=== PATIENT | female | born 1950 | race Caucasian/White ===

== ENCOUNTER → 2017-07-15 | Outpatient (CLI) | END | disposition home or self-care (01) ==

== ENCOUNTER → 2017-07-29 | Outpatient (CLI) | payer MEDICARE, OTHER ==
[~2017-07-29] MED LIST: ACET120S PR; HYDACE5 PO; HYDCHL50 PO; IBUP400 PO; PRAV20 PO; TRAM50 PO; TRIHYD5075; Zestril30 MG PO; [UNRECOGNIZED DRUG - REMARK]; [UNRECOGNIZED DRUG - REMARK]
== END | disposition home or self-care (01) ==
LOC: LAB SHORT 18:35 → LAB EV 18:35
DX: N39.0 Urinary tract infection, site not specified (principal)
CPT/HCPCS: 87086

== ENCOUNTER 2018-08-12 22:22 | Emergency (ER) | payer MEDICARE, OTHER ==
[~2018-08-12] VITALS: Ht 167.6 cm; Wt 103.9 kg
[2018-08-12] MEDS ORDERED: KETO10 PO (22:55)
== END 2018-08-12 23:06 | disposition home or self-care (01) ==
LOC: ER 22:22
DX: S00.81XA Abrasion of other part of head, initial encounter (principal); M25.562 Pain in left knee; M25.522 Pain in left elbow; W18.30XA Fall on same level, unspecified, initial encounter; Z79.899 Other long term (current) drug therapy; I10 Essential (primary) hypertension
CPT/HCPCS: 99283

== ENCOUNTER 2021-04-05 10:29 | Inpatient (IN) | payer MEDICARE, OTHER ==
[~2021-04-05] VITALS: Ht 167.6 cm; Wt 166.0 kg
[~2021-04-05 10:29] MED LIST changes: +KETO10 PO
[2021-04-05 10:59] LABS: BASOPHILS ABSOLUTE AUTO 0.03 K/mm3 (0.00-0.23); BASOPHILS PERCENT AUTO 0 % (0-2); EOSINOPHILS ABSOLUTE AUTO 0.08 K/mm3 (0.00-0.68); EOSINOPHILS PERCENT AUTO 1 % (0-6); Hematocrit 47.9 % (33.0-51.0); Hemoglobin 13.3 g/dL (11.5-16.0); IMMATURE GRAN ABSOLUTE AUTO 0.05 K/mm3 (0.00-0.10); IMMATURE GRAN PERCENT AUTO 1 % (0-1); LYMPHOCYTES PERCENT AUTO 14 % (21-46); MONOCYTES ABSOLUTE AUTO 0.75 K/mm3 (0.16-1.47); MONOCYTES PERCENT AUTO 10 % (4-13); Mean Corpuscular HGB 26.4 pg (26.0-34.0); Mean Corpuscular HGB Conc 27.8 g/dL (31.5-36.5); Mean Corpuscular Volume 95 fL (80-100); Mean Platelet Volume 9.2 fL (9.1-12.4); NEUTROPHILS ABSOLUTE AUTO 5.39 K/mm3 (1.96-9.15); NEUTROPHILS PERCENT AUTO 74 % (41-73); Platelet Count 201 K/mm3 (150-400); RDW Coefficient Variation 16.8 % (11.7-14.2); RDW Standard Deviation 58.8 fL (35.1-46.3); Red Blood Cell Count 5.04 M/mm3 (3.80-5.20)
[2021-04-05 11:17] LABS: Albumin, Blood 2.5 g/dL (3.4-5.0); Albumin/Globulin Ratio 0.4 (0.8-1.8); Bun/Creatinine Ratio 16.5 (12.0-20.0); Calcium, Blood 9.1 mg/dL (8.5-10.1); Creatinine, Blood 1.88 mg/dL (0.40-1.00); Globulin, Blood 6.2 g/dL (2.2-4.0); Potassium, Blood 5.8 mmol/L (3.5-5.5); Total Protein, Blood 8.7 g/dL (6.4-8.2)
[2021-04-05 11:23] LABS: PO2 Arterial 108 mmHg (80-100)
[2021-04-05 11:24] LABS: PCO2 Arterial > 105 mmHg (35-45); pH Blood Arterial 7.16 (7.35-7.45)
[2021-04-05 12:08] LABS: Influenza A, PCR NEGATIVE (NEGATIVE); Influenza B, PCR NEGATIVE (NEGATIVE); Resp Syncytial Virus, PCR NEGATIVE (NEGATIVE); SARS-Cov-2 (COVID-19) PCR, MMC NEGATIVE (NEGATIVE)
[2021-04-05] MEDS ORDERED: TIZANIDINE HCL PO (13:42)
[2021-04-05 17:50] LABS: Bun/Creatinine Ratio 15.5 (12.0-20.0); Calcium, Blood 8.6 mg/dL (8.5-10.1); Potassium, Blood 5.7 mmol/L (3.5-5.5)
--- NOTE | 2021-04-05 18:16 | NUR ---
SHIFT SUMMARY PT HAS BEEN RESTING IN BED SINCE ARRIVAL FROM ED. PT HAS BEEN COOPERATIVE AND CALLS APPROPRIATELY FOR ASSISTANCE. PT IS ALERT AND ORIENTED X4. PEDAL AND TIBIAL PULSES ARE VERY FAINT AND DIFFICULT TO LOCATE WITH PALPATION AND DOPPLER. PT ARRIVED WITH MULTIPLE WOUNDS TO THE ABDOMEN AND THE FEET WHICH HAVE BEEN DOCUMENTED, CLEANED, AND DRESSED. PT C/O PAIN AND DISCOMFORT DURING WOUND CARE. A SAWANT CATHETER WAS PLACED UPON ADMISSION TO THE UNIT, PT TOLERATED FAIR, C/O BURNING SENSATION AFTER PLACEMENT. SBP RANGED 101-127. SPO2 HAS REMAINED >90% ON BIPAP 18/8 40%.
--- NOTE | 2021-04-05 20:02 | NUR ---
FULL CODE STATUS CODE STATUS WAS CHANGED BY DAY SHIFT RN TO DNR AT CHANGE OF SHIFT. WHEN VERIFYING CODE STATUS AND PLACING DNR BAND, PATIENT STATED SHE WANTED TO BE A FULL CODE AND TO "KEEP ME ALIVE LONG ENOUGH FOR MY FAMILY TO GET HERE BUT NO LONGER THAN ONE WEEK". PATIENT STATED HER AND DAUGHTER LIVE LOCALLY AND A SON IN [place] BUT THE MAJORITY OF FAMILY LIVES OUT OF STATE. PATIENT EDUCATED ON WHAT A FULL CODE STATUS ENTAILS. PATIENT CONFIRMED SHE WANTS TO BE A FULL CODE. CALL PLACED TO HOSPITALIST, UPDATED ORDER RECIEVED.
[2021-04-06 03:27] LABS: Base Excess Venous 12.4 mmol/L; Bicarbonate Venous 32.3 mmol/L (24.0-30.0); PCO2 Venous 91.9 mmHg (38-42); PO2 Venous 47.8 mmHg (38-42); pH Blood Venous 7.24 (7.34-7.37)
[2021-04-06 03:36] LABS: Hematocrit 44.5 % (33.0-51.0); Hemoglobin 12.4 g/dL (11.5-16.0); Mean Corpuscular HGB 26.7 pg (26.0-34.0); Mean Corpuscular HGB Conc 27.9 g/dL (31.5-36.5); Mean Corpuscular Volume 96 fL (80-100); Platelet Count 157 K/mm3 (150-400); RDW Coefficient Variation 16.7 % (11.7-14.2); Red Blood Cell Count 4.64 M/mm3 (3.80-5.20); White Blood Cell Count 7.38 K/mm3 (4.00-11.30)
[2021-04-06 03:56] LABS: Albumin, Blood 2.2 g/dL (3.4-5.0); Albumin/Globulin Ratio 0.4 (0.8-1.8); Bilirubin, Total 0.6 mg/dL (0.1-1.0); Bun/Creatinine Ratio 18.4 (12.0-20.0); Calcium, Blood 9.1 mg/dL (8.5-10.1); Creatinine, Blood 2.07 mg/dL (0.40-1.00); Globulin, Blood 5.9 g/dL (2.2-4.0); Magnesium, Blood 2.4 mg/dL (1.6-2.4); Potassium, Blood 5.8 mmol/L (3.5-5.5); Total Protein, Blood 8.1 g/dL (6.4-8.2)
[2021-04-06 03:58] LABS: Source, Urine Foley catheter
[2021-04-06 04:08] LABS: Blood, Urine 5+ (Neg); Glucose Qualitative, Urine Neg (Neg); Ketones, Urine 1+ (Neg); Leukocyte Esterase, Urine 2+ (Neg); Nitrite, Urine Neg (Neg); Protein, Urine 3+ (Neg); Specific Gravity, Urine 1.025 (1.003-1.022); Urobilinogen, Urine 2+ (Normal)
[2021-04-06 04:15] LABS: Appearance, Urine Cloudy (Clear); Bilirubin, Urine 1+ (Neg); Color, Urine Amber (P-Yellow)
[2021-04-06 04:17] LABS: Amorphous Heavy (0-Heavy); Bacteria Mod /hpf; Squamous Epithelial Cells Rare /hpf (Few); Transitional Epithelial Cells Few /hpf (0-Rare)
--- NOTE | 2021-04-06 05:53 | NUR ---
SHIFT SUMMARY PATIENT ALERT AND ORIENTED x4. HAS RESTED FOR MAJORITY OF SHIFT. VSS. PATIENT ON BIPAP FOR MOST OF NIGHT. SETTINGS 18/8 40% FIO2 WITH O2 SATS ABOVE 90%. PEDAL PULSES HEARD BY DOPPLER ONLY. DENIES CHEST PAIN. PATIENT WAS ABLE TO TAKE A BREAK FROM BIPAP AT START OF SHIFT TO EAT DINNER AND SPEAK WITH FAMILY MEMBERS. PATIENT REPOSITIONED Q2 AND PRN. SAWANT IN PLACE WITH MINIMAL DARK STEW URINE OUTPUT. VBG DRAWN THIS MORNING, PLAN TO KEEP PATIENT ON BIPAP UNTIL DAY SHIFT CAN REEVALUATE. BED IN LOW POSITION, CALL LIGHT IN REACH. WILL REPORT TO DAY SHIFT.
--- NOTE | 2021-04-06 06:14 | NUR ---
UPDATE PATIENT WAS FOUND TO BE DRINKING WATER THROUGH A STRAW WITH BIPAP IN PLACE. PATIENT EDUCATED ON IMPORTANCE OF STRICT NPO WHILE BIPAP IS ON AND THE RISK OF ASPIRATION. LIQUIDS REMOVED FROM BEDSIDE.
--- NOTE | 2021-04-06 07:31 | NUR ---
ASSUMPTION OF CARE REPORT RECEIVED FROM [facility] RN. PT IS AWAKE AND RESTING IN BED, BIPAP IS IN PLACE 18/8 45%, SPO2 97%. PT DENIES C/O PAIN OR DISCOMFORT.
[2021-04-06 12:01] LABS: Base Excess Venous 12.3 mmol/L; Bicarbonate Venous 32.6 mmol/L (24.0-30.0); PCO2 Venous 71.6 mmHg (38-42); PO2 Venous 28.5 mmHg (38-42); pH Blood Venous 7.34 (7.34-7.37)
[2021-04-07 04:09] LABS: BASOPHILS ABSOLUTE AUTO 0.01 K/mm3 (0.00-0.23); BASOPHILS PERCENT AUTO 0 % (0-2); EOSINOPHILS PERCENT AUTO 0 % (0-6); Hematocrit 41.4 % (33.0-51.0); Hemoglobin 11.7 g/dL (11.5-16.0); IMMATURE GRAN ABSOLUTE AUTO 0.06 K/mm3 (0.00-0.10); IMMATURE GRAN PERCENT AUTO 1 % (0-1); LYMPHOCYTES ABSOLUTE AUTO 0.22 K/mm3 (0.84-5.20); LYMPHOCYTES PERCENT AUTO 2 % (21-46); MONOCYTES ABSOLUTE AUTO 0.28 K/mm3 (0.16-1.47); MONOCYTES PERCENT AUTO 3 % (4-13); Mean Corpuscular HGB 26.3 pg (26.0-34.0); Mean Corpuscular HGB Conc 28.3 g/dL (31.5-36.5); Mean Corpuscular Volume 93 fL (80-100); Mean Platelet Volume 9.1 fL (9.1-12.4); NEUTROPHILS ABSOLUTE AUTO 9.87 K/mm3 (1.96-9.15); NEUTROPHILS PERCENT AUTO 95 % (41-73); Platelet Count 160 K/mm3 (150-400); RDW Coefficient Variation 16.5 % (11.7-14.2); Red Blood Cell Count 4.45 M/mm3 (3.80-5.20); White Blood Cell Count 10.44 K/mm3 (4.00-11.30)
[2021-04-07 04:25] LABS: Bun/Creatinine Ratio 29.9 (12.0-20.0); Calcium, Blood 8.5 mg/dL (8.5-10.1); Creatinine, Blood 1.77 mg/dL (0.40-1.00); Potassium, Blood 5.4 mmol/L (3.5-5.5)
--- NOTE | 2021-04-07 07:14 | NUR ---
SHIFT SUMMARY PT ALERT AND ORIENTED X4. HR 50-90 NSR. ON BIPAP 18/8 30% FIO2 WHILE ASLEEP, MAINTAINING SATS OVER 95%. ON 2L NC WHILE AWAKE AND FOR MEALS. BP STABLE. WOUNDS ON TRUNK COVERED WITH EXUDRY. WOUNDS ON FEET OPEN TO AIR, LEGS ELEVATED. BLE EDEMA. MENTATION IMPROVING, NO HALLUCINATIONS THIS EVENING. Q2 TURNS WITH GIULIA BED. ANXIOUS AT TIMES. SAWANT IN PLACE DRAINING DARK STEW URINE TO GRAVITY. IN BED RESTING WITH CALL ALARM AT SIDE. WILL CONTINUE TO MONITOR UNTIL REPORT GIVEN TO DAYSHIFT RN
[2021-04-07 10:58] LABS: PCO2 Arterial 87.8 mmHg (35-45); PO2 Arterial 56.5 mmHg (80-100); pH Blood Arterial 7.24 (7.35-7.45)
--- NOTE | 2021-04-07 12:23 | NUR ---
AM NOTE: PATIENT ALERT AND ORIENTED X3-4. CLAIMS SHE HAS SOME HALLUCINATIONS OF HER DOGS AND HUSBANDS TOOLS. PERRLA. DENIES NUMBNESS/TINGLING AT THIS TIME. VERY WEAK, Q2 TURNING AND NEEDED. ON BIPAP AT 18/8 AND 30%. WHEN OFF BIPAP FOR MEALS PATIENT ON 2-4L NASAL CANNULA. SATING MID 90'S. LUNGS SOUNDING CLEAR AND DIMINISHED. TELE SHOWING SINUS RHYTHM WITH HR 70-80'S. DENIES CHEST PAIN/PRESSURE. VITAL SIGNS STABLE. MILD EDEMA IN LOWER EXTREMITIES, HARD TO ASSESS DUE TO OBESITY. DENIES ABDOMINAL PAIN/NAUSEA. SPEECH THERAPY IN. TOLERATING PO DIET. MULTIPLE WOUNDS AND IRRITATED FOLDS. MICONAZORB ORDERED, FOLDS CLEAN AND APPLIED. GRANDDAUGHTER AT BEDSIDE. DR. WEEMS AND DR. MICHAUD CONSULTED. CALL LIGHT IN REACH. WILL CONTINUE TO MONITOR.
--- NOTE | 2021-04-07 13:22 | NUR ---
UPDATE: CALL PLACED TO DR. MICHAUD TO UPDATE ON POTASSIUM. NO NEW ORDERS AT THIS TIME.
--- NOTE | 2021-04-07 14:56 | NUR ---
Attempted to interview patient today. Dr. Hyde was assessing patient. Swallow study was being performed. Nurse with in with patient performing care. And patient was asleep/resting. Will attempt later today or tomorrow.
--- NOTE | 2021-04-07 17:00 | NUR ---
Echocardiogram performed by myself and Dilan Jean.
--- NOTE | 2021-04-07 17:59 | NUR ---
SHIFT SUMMARY: PATIENT IS VERY LETHARGIC, WAKES TO NAME, VOICES, AND TOUCH. ABLE TO STATE NAME AND DATE OF . NOT STAYING AWAKE TO EAT DINNER. DR. OSBORNE UPDATED ON MENTATION, PLAN FOR REPEAT ABG IN AM. CONSULTED WITH RESPIRATORY. DR. WEEMS AND DR. MICHAUD CONSULTED. REMAINS ON BIPAP FOR MOST OF DAY, BREAKS FOR LUNCH, DINNER AND WORKING WITH PT. BIPAP SETTINGS 18/8 AND 40% AT THIS TIME. SATING MID-HIGH 90'S. NO CHANGES IN TELE. Q2 TURNING AND NEEDED. SAWANT CATH REMAINS IN PLACE DRAINING CLEAR/YELLOW URINE. MINIMAL PO FLUID INTAKE, FLUID RESTRICTION MAINTAINED. CALL LIGHT IN REACH. SLEEPING AT THIS TIME. WILL CONTINUE TO MONITOR AND REPORT OFF.
--- NOTE | 2021-04-07 20:00 | NUR ---
ASSUMED CARE OF PT, REPORT RECEIVED FROM DAYSHIFT RN. PT HAS BEEN AOX3/4, SHE THINKS IT IS WEDNESDAY AND STATES THAT SHE FEELS LIKE SHE LOST A DAY. SHE IS TALKING TO HER FAMILY ON THE PHONE AT THIS TIME. PT TOLERATES BRIEF BREAKS FROM CPAP, ON 4L NC. SHE DID NOT EAT ANY DINNER AND DECLINES FOOD AT THIS TIME. SEE SHIFT ASSESSMENT FOR EXAM.CALL LIGHT IS IN REACH AND VSS.
[2021-04-08 04:02] LABS: BASOPHILS PERCENT AUTO 0 % (0-2); EOSINOPHILS PERCENT AUTO 0 % (0-6); Hematocrit 38.2 % (33.0-51.0); Hemoglobin 10.8 g/dL (11.5-16.0); IMMATURE GRAN PERCENT AUTO 1 % (0-1); LYMPHOCYTES ABSOLUTE AUTO 0.21 K/mm3 (0.84-5.20); LYMPHOCYTES PERCENT AUTO 2 % (21-46); MONOCYTES ABSOLUTE AUTO 0.26 K/mm3 (0.16-1.47); MONOCYTES PERCENT AUTO 3 % (4-13); Mean Corpuscular HGB 26.4 pg (26.0-34.0); Mean Corpuscular HGB Conc 28.3 g/dL (31.5-36.5); Mean Corpuscular Volume 93 fL (80-100); Mean Platelet Volume 9.1 fL (9.1-12.4); NEUTROPHILS ABSOLUTE AUTO 9.26 K/mm3 (1.96-9.15); NEUTROPHILS PERCENT AUTO 94 % (41-73); Platelet Count 131 K/mm3 (150-400); RDW Coefficient Variation 16.6 % (11.7-14.2); RDW Standard Deviation 56.5 fL (35.1-46.3); Red Blood Cell Count 4.09 M/mm3 (3.80-5.20); White Blood Cell Count 9.83 K/mm3 (4.00-11.30)
[2021-04-08 04:25] LABS: Albumin, Blood 2.2 g/dL (3.4-5.0); Albumin/Globulin Ratio 0.4 (0.8-1.8); Bilirubin, Total 0.4 mg/dL (0.1-1.0); Bun/Creatinine Ratio 44.6 (12.0-20.0); Calcium, Blood 8.3 mg/dL (8.5-10.1); Creatinine, Blood 1.39 mg/dL (0.40-1.00); Globulin, Blood 5.3 g/dL (2.2-4.0); Magnesium, Blood 2.4 mg/dL (1.6-2.4); Phosphorus, Blood 5.5 mg/dL (2.5-4.9); Potassium, Blood 5.1 mmol/L (3.5-5.5); Total Protein, Blood 7.5 g/dL (6.4-8.2)
--- NOTE | 2021-04-08 04:46 | NUR ---
PT WISHES TO BE A FULL CODE. SHE STATES THAT SHE WANTS US TO KEEP HER ALIVE LONG ENOUGH FOR HER FAMILY TO COME SEE HER IF HER HEART SHOULD STOP, BUT SHE IS NOT DYING NOW.
--- NOTE | 2021-04-08 05:58 | NUR ---
DR MICHAUD IS UPDATED WITH [employer]. NO NEW ORDERS RECEIVED.
[2021-04-08 06:05] LABS: pH Blood Arterial 7.32 (7.35-7.45)
[2021-04-08 06:07] LABS: PCO2 Arterial 76.5 mmHg (35-45)
--- NOTE | 2021-04-08 06:19 | NUR ---
DR MICHAUD AT BEDSIDE. REVIEWED I/O, NO NEW ORDERS.
--- NOTE | 2021-04-08 06:20 | NUR ---
PT REMAINS AOX3/4 OVERNIGHT. SHE CONTINUES TO SAY THAT IT'S WEDNESDAY, BUT OTHERWISE ORIENTED. BIPAP OVERNIGHT WITH BRIEF BREAKS FOR ORAL CARE/SNACK/MEDICATION. PT BECOMES DYSNEIC AND DESATURATES TO THE 70'S DURING A TURN FOR SKIN CARE. SHE QUICKLY RECOVERED WHEN REPOSITIONED TO SITTING POSITION. NO OTHER SIGNIFICANT CHANGES NOTED OVERNIGHT. WILL CONTINUE TO MONITOR AND REPORT TO ONCOMING SHIFT.
--- NOTE | 2021-04-08 13:17 | NUR ---
Patient is lying in bed and alert. Patient seems a little confused although I am not sure what her base line is. She did admit to having hallucinations and she shares those with me but then she seemed to also be having current hallucinations seeing dogs in the room walking around during my visit. She does have moments of clarity to talk about her family members, her health issues and her mix of beliefs and Jew. I reinforce helpful attitudes and practices and provide therapeutic listening, spiritual guidance and prayer. Patient responds well and shows signs of being encouraged in her beliefs and having a renewed hope.
--- NOTE | 2021-04-08 13:50 | NUR ---
Initial Interview with [facility] [employer] 1. Who did you speak with? Spoke with patient. 2. What is the patient's prior level of functions? Patient lives independently with spouse. Patient's daughter and granddaughter live on the [place] property. Granddaughter/daughter and assists with ADL's Patient is afraid she may be fall risk while showering, so granddaughter assists when needed. Patient has a chairlift/reclining chair, and reclining bed. She also has a scooter and wheelchair. She uses a CPAP at night, but states she will switch to a BIPAP upon leaving the hospital. 3. Does patient still drive? No, patient states she will drive only in an emergency. She does not drive routinely. 4. POA/PCP/NOK: Spouse [phone]/PCP Dr. Jessica Ling MD 5. Discharge goals: Date TBD -Fdc Facility/home health: No preference -DME: TBD -Medication Management: self manages -Preferred Pharmacy: [facility] -Housekeeping/Cooking: /patient performs housekeeping and cooking 6. List barriers to discharge: None known at this time 7. Discharge Plan: TBD 8. PCP Follow up appointment: Will be scheduled within seven calendar days of discharge 9. Other Notes: patient is not a . Explained importance of hospital follow-up with PCP within 7 days of discharge. Number confirmed: [phone]. Patient is not a .
--- NOTE | 2021-04-08 16:15 | NUR ---
Skin assessment: Pt has many wound. Bilateral feet have dried flaking wounds, some look like healing blisters. Left food there is a dark area on end of toe. BLE reddened and tight with edema. Panus and fold areas are reddened and some have open areas that were bleeding when cleaned. Nystatin powder was applied to reddened areas. Abdomen was taught from edema as well. Buttocks and coccyx area has purplish coloring to the skin, mepalex applied and pt has been turned every 2 hours if not more frequently and she is on a wound care bed with the air shifting weight as well.
--- NOTE | 2021-04-08 18:15 | NUR ---
Pt just returned from CTA, sitting up in bed eating dinner on 4L oxygen sating low 90s.
--- NOTE | 2021-04-08 18:28 | NUR ---
Notifed Dr. Aguilar of elevated d-dimer and results of CTA.
--- NOTE | 2021-04-08 18:31 | NUR ---
Shift Note: A&O, pleasant with cares. VSS on BIPAP 02/10 and was titrated to 30% fio2 today, sating mid 90s when on BIPAP. Pt is placed on 4L nasal canula when eating meals and tolerates for minimal amount of time on 4L. Pt desats with activity. CBGs 130-188, sliding scale per orders. Voss in place and draining well. IV lasix and solumedrol given per orders as well as IV antifungal. Skin has extensive issues, please see other note of skin assessment. MD ordered a D-dimer in evening that was elevated and then ordered a VQ scan. Scan did not indicate a PE, but pleaural effusions and see report for other findings. Pt is getting lovenox for anticoag. RT administers breathing txs. and brother visited several times today. Pt worked with PT/OT and OPHTHALMOLOGIST today as well. Using lift for repositioning. Pt also has a weight distributing bed to aid in skin health and Q2 turns if not more frequently.
[2021-04-09 03:36] LABS: BASOPHILS PERCENT AUTO 0 % (0-2); EOSINOPHILS PERCENT AUTO 0 % (0-6); Hematocrit 38.3 % (33.0-51.0); Hemoglobin 10.8 g/dL (11.5-16.0); IMMATURE GRAN ABSOLUTE AUTO 0.06 K/mm3 (0.00-0.10); IMMATURE GRAN PERCENT AUTO 1 % (0-1); LYMPHOCYTES ABSOLUTE AUTO 0.19 K/mm3 (0.84-5.20); LYMPHOCYTES PERCENT AUTO 3 % (21-46); MONOCYTES ABSOLUTE AUTO 0.22 K/mm3 (0.16-1.47); MONOCYTES PERCENT AUTO 3 % (4-13); Mean Corpuscular HGB 25.9 pg (26.0-34.0); Mean Corpuscular HGB Conc 28.2 g/dL (31.5-36.5); Mean Corpuscular Volume 92 fL (80-100); Mean Platelet Volume 8.5 fL (9.1-12.4); NEUTROPHILS ABSOLUTE AUTO 6.03 K/mm3 (1.96-9.15); NEUTROPHILS PERCENT AUTO 93 % (41-73); Platelet Count 112 K/mm3 (150-400); RDW Coefficient Variation 16.5 % (11.7-14.2); RDW Standard Deviation 55.1 fL (35.1-46.3); Red Blood Cell Count 4.17 M/mm3 (3.80-5.20)
[2021-04-09 03:52] LABS: Albumin, Blood 2.3 g/dL (3.4-5.0); Anion Gap 3 mmol/L (6-16); Blood Urea Nitrogen 68 mg/dL (8-24); Bun/Creatinine Ratio 57.1 (12.0-20.0); CO2, Blood 38 mmol/L (21-32); Calcium, Blood 8.1 mg/dL (8.5-10.1); Chloride, Blood 99 mmol/L (98-108); Creatinine, Blood 1.19 mg/dL (0.40-1.00); Glomerular Filtration Rate 45 (60-); Glucose, Blood 170 mg/dL (70-99); Magnesium, Blood 2.2 mg/dL (1.6-2.4); Phosphorus, Blood 4.5 mg/dL (2.5-4.9); Potassium, Blood 4.3 mmol/L (3.5-5.5); Sodium, Blood 140 mmol/L (136-145)
--- NOTE | 2021-04-09 05:42 | NUR ---
END OF SHIFT: PATIENT HAS BEEN RESTING MOST OF THE NIGHT WITH OCCASIONAL BREAKS FRON THE BIPAP ON NC 4L AND TOLERATED WELL, PATIENT ALERT AND ORIENTED AND PLEASANT. PATIENT HAS BEEN IN SR 70-80'S. SPO2 HAS BEEN >90%, ON BOTH BIPAP AND 4L NC. PATIENT INFORMS STAFF WHEN WANTING TO SWITCH BACK TO BIPAP, Q2 REPOSITIONS IF NOT MORE FREQUENT DUE TO PATIENT NEEDS. PATIENT CURRENLTY DIURESING. DR MICHAUD NO CHANGES CONTINUE TREATMENT REGIMENT. NO CHEST PAIN, SOME ANXIETY THROUGH THE NIGHT, PATIENT HAS BEEN PLEASANT WILL CONTINUE TO MONITOR.
--- NOTE | 2021-04-09 07:38 | NUR ---
Pt is awake, alert, pleasantly conversant. Blood pressure is elevated. She is wearing the bipap, and tolerating it very well.
--- NOTE | 2021-04-09 09:29 | NUR ---
Wearing the AirVo at this time. She is tolerating it very well. She talks incessantly, and is speaking full sentences with 1-2 breaths taken mid sentence. RR is 22-24/min, spo2 92% while on 50 L/min O2 flow and 30% FiO2.
--- NOTE | 2021-04-09 12:21 | NUR ---
HYPOXIA TO 85% WHILE EATING. RECOVERS TO 90-91% WITH PURSED LIP BREATHING. BROTHER AT THE BEDSIDE.
--- NOTE | 2021-04-09 14:22 | NUR ---
Pt required repositioning. Spo2 dropped to 79% while on the AirVo after being in the lift and head lowered for repositioning. 100% Fio2 given for 90 seconds, pt recovered to 91% Spo2. However, she talks constantly while staff are in the room, and spo2 began to drop again to 84%. She was gently encouraged to cease from talking and to concentrate on her breathing for recovery. She did this, with good recovery, and also used her pursed lip breathing. About half an hour later she was put on the bipap because she was going to take a nap.
--- NOTE | 2021-04-09 21:30 | NUR ---
Assumed care of pt at 1900. A/Ox4 at this time on Airvo 45L/40%. Bedfast requiring Q2 turns with lift. Reports no CP/Pressure. HTN with SBP in 170's. Maintains above 90% on airvo (see above for settings) or Bipap 18/8 30%. LS clear on top and dim at bases. Dyspnea with exertion. SR on tele avg 90. Strong pulses t/o. BL toes red, warm to touch with bounding pulses. 3+ generalized dependent edema, BL thighs 4+, pretibial 1+, ankles have trace edema. Urinary cath draining to gravity clear/yellow urine. Joi care and cath care performed along with moving stat lock closer to urethral meatus d/t feeling of "tugging". Patient reports relief. Skin wounds t/o on feet/toes/ankles, coccyx, panus. Will update as changes occur.
[2021-04-10 04:12] LABS: PCO2 Arterial 79.5 mmHg (35-45); PO2 Arterial 72.6 mmHg (80-100); pH Blood Arterial 7.36 (7.35-7.45)
[2021-04-10 05:16] LABS: BASOPHILS PERCENT AUTO 0 % (0-2); EOSINOPHILS PERCENT AUTO 0 % (0-6); Hematocrit 37.9 % (33.0-51.0); Hemoglobin 10.7 g/dL (11.5-16.0); IMMATURE GRAN ABSOLUTE AUTO 0.04 K/mm3 (0.00-0.10); IMMATURE GRAN PERCENT AUTO 1 % (0-1); LYMPHOCYTES ABSOLUTE AUTO 0.11 K/mm3 (0.84-5.20); LYMPHOCYTES PERCENT AUTO 2 % (21-46); MONOCYTES ABSOLUTE AUTO 0.19 K/mm3 (0.16-1.47); MONOCYTES PERCENT AUTO 4 % (4-13); Mean Corpuscular HGB 26.4 pg (26.0-34.0); Mean Corpuscular HGB Conc 28.2 g/dL (31.5-36.5); Mean Corpuscular Volume 93 fL (80-100); Mean Platelet Volume 9.1 fL (9.1-12.4); NEUTROPHILS ABSOLUTE AUTO 4.42 K/mm3 (1.96-9.15); NEUTROPHILS PERCENT AUTO 93 % (41-73); Platelet Count 106 K/mm3 (150-400); RDW Coefficient Variation 16.6 % (11.7-14.2); RDW Standard Deviation 56.1 fL (35.1-46.3); Red Blood Cell Count 4.06 M/mm3 (3.80-5.20); White Blood Cell Count 4.76 K/mm3 (4.00-11.30)
[2021-04-10 05:37] LABS: Albumin, Blood 2.6 g/dL (3.4-5.0); Anion Gap 2 mmol/L (6-16); Blood Urea Nitrogen 69 mg/dL (8-24); Bun/Creatinine Ratio 70.7 (12.0-20.0); CO2, Blood 42 mmol/L (21-32); Calcium, Blood 8.8 mg/dL (8.5-10.1); Chloride, Blood 99 mmol/L (98-108); Creatinine, Blood 0.98 mg/dL (0.40-1.00); Glomerular Filtration Rate 56 (60-); Glucose, Blood 173 mg/dL (70-99); Magnesium, Blood 2.3 mg/dL (1.6-2.4); Phosphorus, Blood 4.4 mg/dL (2.5-4.9); Potassium, Blood 4.3 mmol/L (3.5-5.5); Sodium, Blood 143 mmol/L (136-145)
--- NOTE | 2021-04-10 07:26 | NUR ---
ASSUMPTION OF CARE RECEIVED HANDOFF REPORT FROM NOC RN. PT IS CURRENTLY RECEIVING TREATMENT FROM RT. PT IS RESTING IN BED, AWAKE AND ALERT.
--- NOTE | 2021-04-10 09:35 | NUR ---
UPDATE PT WAS SWITCHED TO HIFLO FROM BIPAP AT 0800 FOR BREAKFAST, 40L/40%, MAINTAINED SPO2>90% TOLERATED WELL. FAMILY MEMBER WAS AT BEDSIDE CONVERSING WITH PT.
--- NOTE | 2021-04-10 11:39 | NUR ---
PT SWITCHED FROM BIPAP TO HFT FOR PHYSICAL THERAPY.
--- NOTE | 2021-04-10 18:11 | NUR ---
SHIFT SUMMARY PT HAS BEEN RESTING IN BED. PT HAS DENIED C/O PAIN, OCCASIONAL DISCOMFORT RELIEVED WITH REPOSITIONING. VSS, NO CHANGES IN CURRENT CONDITION. PT HAS CALLED FOR ASSISTANCE APPROPRIATELY AND HAS BEEN COOPERATIVE WITH ALL CARE.
--- NOTE | 2021-04-10 22:27 | NUR ---
Assumed care of pt at 1900. A/Ox4. Reports no CP/pressure or pain in general. Mostly been on BIPAP with breaks inbetween with Airvo. BIPAP 18/8 35% or Airvo 40L 35%. LS dim t/o R lung maria and inspiratory wheezes in left. Desats on airvo with talking to low 80's, recovers quickly. SR on tele. Edema same as previous night in BLE. VSS. Will update as changes occur.
[2021-04-11 06:17] LABS: BASOPHILS ABSOLUTE AUTO 0.01 K/mm3 (0.00-0.23); BASOPHILS PERCENT AUTO 0 % (0-2); EOSINOPHILS PERCENT AUTO 0 % (0-6); Hematocrit 39.6 % (33.0-51.0); Hemoglobin 11.2 g/dL (11.5-16.0); IMMATURE GRAN ABSOLUTE AUTO 0.09 K/mm3 (0.00-0.10); IMMATURE GRAN PERCENT AUTO 2 % (0-1); LYMPHOCYTES ABSOLUTE AUTO 0.14 K/mm3 (0.84-5.20); LYMPHOCYTES PERCENT AUTO 3 % (21-46); MONOCYTES ABSOLUTE AUTO 0.22 K/mm3 (0.16-1.47); MONOCYTES PERCENT AUTO 5 % (4-13); Mean Corpuscular HGB 26.3 pg (26.0-34.0); Mean Corpuscular HGB Conc 28.3 g/dL (31.5-36.5); Mean Corpuscular Volume 93 fL (80-100); Mean Platelet Volume 9.2 fL (9.1-12.4); NEUTROPHILS ABSOLUTE AUTO 3.92 K/mm3 (1.96-9.15); NEUTROPHILS PERCENT AUTO 90 % (41-73); Platelet Count 84 K/mm3 (150-400); RDW Coefficient Variation 16.6 % (11.7-14.2); RDW Standard Deviation 57.2 fL (35.1-46.3); Red Blood Cell Count 4.26 M/mm3 (3.80-5.20); White Blood Cell Count 4.38 K/mm3 (4.00-11.30)
[2021-04-11 06:39] LABS: Alanine Aminotransfer (ALT/SGP 25 U/L (12-78); Albumin, Blood 3.3 g/dL (3.4-5.0); Albumin/Globulin Ratio 0.7 (0.8-1.8); Alk Phos 69 U/L (50-136); Anion Gap 2 mmol/L (6-16); Aspartate Aminotrans (AST/SGOT 28 U/L (12-37); Bilirubin, Total 0.9 mg/dL (0.1-1.0); Blood Urea Nitrogen 64 mg/dL (8-24); Bun/Creatinine Ratio 70.8 (12.0-20.0); CO2, Blood 42 mmol/L (21-32); Calcium, Blood 9.2 mg/dL (8.5-10.1); Chloride, Blood 99 mmol/L (98-108); Globulin, Blood 4.7 g/dL (2.2-4.0); Glomerular Filtration Rate >60 (60-); Glucose, Blood 199 mg/dL (70-99); Potassium, Blood 4.1 mmol/L (3.5-5.5); Sodium, Blood 143 mmol/L (136-145)
--- NOTE | 2021-04-11 07:12 | NUR ---
TOOK OVER AT 0030. PT IS ALERT AND ORIENTED X4. PT IS ON BIPAP ON AND OFF; PT REQUESTED MULTIPLE TIMES TO BE PUT ON HIGH FLOW. SATS 100%. SAWANT IN; PRODUCING URINE. VERY PLEASANT. VSS.
--- NOTE | 2021-04-11 17:50 | NUR ---
SHIFT SUMMARY; ASSUMED CARE AT 0700, BIPAP IN PLACE WHEN ASSUMING CARE. REMOVED AND PLACED ON AIRVO FOR DAY. A/A/OX4, SATS MAINTAINED AT 90-94%. REPOSITIONED Q2, UP TO RECLINER CHAIR WITH CEILING LIFT, WORKED WITH PHYSICAL THERAPY. BED BATH COMPLETE WITH LINEN AND GOWN CHANGE. ORAL CARE COMPLETE TODAY. INSULIN COVERAGE PER EMAR. SPOUSE AT BEDSIDE IN AFTERNOON. NO ACUTE CHANGES, WILL CONTINUE TO MONITOR AND TREAT UNTIL CHANGE OF SHIFT.
[2021-04-12 05:24] LABS: Hematocrit 38.5 % (33.0-51.0)
[2021-04-12 05:49] LABS: Albumin, Blood 3.2 g/dL (3.4-5.0); Anion Gap 3 mmol/L (6-16); Blood Urea Nitrogen 57 mg/dL (8-24); Bun/Creatinine Ratio 69.8 (12.0-20.0); CO2, Blood 43 mmol/L (21-32); Calcium, Blood 8.8 mg/dL (8.5-10.1); Chloride, Blood 98 mmol/L (98-108); Creatinine, Blood 0.82 mg/dL (0.40-1.00); Glomerular Filtration Rate >60 (60-); Glucose, Blood 199 mg/dL (70-99); Magnesium, Blood 2.4 mg/dL (1.6-2.4); Phosphorus, Blood 2.9 mg/dL (2.5-4.9); Potassium, Blood 3.9 mmol/L (3.5-5.5); Sodium, Blood 144 mmol/L (136-145)
--- NOTE | 2021-04-12 06:06 | NUR ---
SHIFT SUMMARY PT ALERT AND ORIENTED X 4. HR STABLE. BP STABLE. NO CP OR PRESSURE REPORTED. OXYGEN SATURATION MAINTAINED ABOVE 92% ON BIPAP AND AIRVO. SEE EHR FOR SETTINGS. PT TURNED Q 2 HRS WITH LIFT. HEEL PROTECTORS IN PLACE DURING SHIFT. SAWANT TO GRAVITY DRAIN. WILL CONT TO MONITOR UNTIL REPORT GIVEN TO DAYSKALAFT RN.
--- NOTE | 2021-04-12 17:53 | NUR ---
SHIFT SUMMARY; ASSUMED CARE AT 0700. A/A/OX4 DURING SHIFT. UP TO CHAIR WITH LIFT FOR SEVERAL HOURS IN AFTERNOON. Q2 REPOSITIONING, MEPILEX TO COCCYX FOR PREVENATIVE. O2 DECREASED TO 5L VIA HIGH FLOW CANNULA, SATS MAINTAINED AT 93%. WORKED WITH PHYSICAL THERAPY TODAY, SPOUSE AT BEDSIDE DURING SHIFT. COOPERATIVE WITH CARE, SAWANT IN PLACE DRAINING CLEAR YELLOW URINE. WILL CONTINUE TO MONITOR AND TREAT UNTIL CHANGE OF SHIFT.
[2021-04-13 04:06] LABS: Hematocrit 38.6 % (33.0-51.0); Hemoglobin 10.6 g/dL (11.5-16.0)
[2021-04-13 04:21] LABS: Albumin, Blood 3.1 g/dL (3.4-5.0); Blood Urea Nitrogen 54 mg/dL (8-24); Bun/Creatinine Ratio 68.4 (12.0-20.0); Calcium, Blood 8.9 mg/dL (8.5-10.1); Chloride, Blood 97 mmol/L (98-108); Creatinine, Blood 0.79 mg/dL (0.40-1.00); Glomerular Filtration Rate >60 (60-); Glucose, Blood 147 mg/dL (70-99); Magnesium, Blood 1.9 mg/dL (1.6-2.4); Phosphorus, Blood 2.9 mg/dL (2.5-4.9); Potassium, Blood 3.9 mmol/L (3.5-5.5); Sodium, Blood 145 mmol/L (136-145)
[2021-04-13 04:32] LABS: Anion Gap Unable to Calculate mmol/L (6-16); CO2, Blood >45 mmol/L (21-32)
--- NOTE | 2021-04-13 05:35 | NUR ---
SHIFT SUMMARY NO ACUTE CHANGES TO REPORT THIS SHIFT. PT HAS RESTED OFF AND ON T/O SHIFT. PT REPOSITIONED Q2HR. PT ON BIPAP OVERNIGHT, PT QUICKLY DESATS WHEN ON RA FOR EVEN A SHORT AMOUNT OF TIME TO TAKE MEDS OR DRINK SIPS OF WATER. PT STILL RETAINING CO2 AND LEVEL THIS AM WAS SLIGHTLY HIGHER THAN HER PREVIOUS LABS, DR. RAMIREZ AWARE WITH NO NEW ORDERS GIVEN. VITALS ARE STABLE. PT A/OX4, COOPERATIVE WITH CARE. SAWANT IN PLACE PATENT AND DRAINING. TELE IN PLACE WITH NO CHANGES. BED IN LOWEST POSITION, CALL LIGHT WITHIN REACH.
[2021-04-13 09:16] LABS: PCO2 Arterial 95.6 mmHg (35-45); PO2 Arterial 61.8 mmHg (80-100); pH Blood Arterial 7.34 (7.35-7.45)
--- NOTE | 2021-04-13 17:45 | NUR ---
SHIFT SUMMARY; ASSUMED CARE AT 0700. RESTING WITH M SERIES BIPAP IN PLACE, WAKES TO VERBAL STIMULI. LAB RESULTS DISCUSSED WITH DR. PAZ, RESTARTED ON V60 BIPAP DUE TO CRITICAL HIGH CO2. WORE THROUGHOUT DAY WITH BREAKS FOR FOOD AND PO FLUIDS. ORAL CARE COMPLETE BY PT WITH ASSISTANCE. UP TO RECLINER CHAIR FOR MAJORITY OF DAY, TOLERATED WELL, REPOSITIONED Q2. MEPILEX IN PLACE ON COCCYX FOR REDDNED AREA WITH NO BREAKDOWN. SAWANT INPLACE DRAINING CLEAR YELLOW URINE. VSS, PALLATIVE CARE CONSULT PLACED TODAY. SPOUSE AND PT REQUEST NO SNIFF AND WANT TO TAKE PT HOME ON BIPAP. BLE EDEMA MUCH IMPROVED FROM PREVIOUS SHIFT, LOWER LEGS REMAIN SCABBED, RED, AND BLISTERED. COOPERATIVE WITH CARE, WILL CONTINUE TO MONITOR AND TREAT UNTIL CHANGE OF SHIFT.
[2021-04-14 04:35] LABS: Hematocrit 37.4 % (33.0-51.0)
[2021-04-14 05:10] LABS: Blood Urea Nitrogen 44 mg/dL (8-24); Bun/Creatinine Ratio 67.5 (12.0-20.0); Calcium, Blood 9.1 mg/dL (8.5-10.1); Chloride, Blood 96 mmol/L (98-108); Creatinine, Blood 0.65 mg/dL (0.40-1.00); Glomerular Filtration Rate >60 (60-); Glucose, Blood 182 mg/dL (70-99); Magnesium, Blood 1.9 mg/dL (1.6-2.4); Phosphorus, Blood 2.3 mg/dL (2.5-4.9); Potassium, Blood 3.9 mmol/L (3.5-5.5); Sodium, Blood 146 mmol/L (136-145)
[2021-04-14 06:25] LABS: Anion Gap Unable to Calculate mmol/L (6-16)
[2021-04-14 06:26] LABS: CO2, Blood >45 mmol/L (21-32)
--- NOTE | 2021-04-14 06:31 | NUR ---
CRITICAL LAB LAB CALLED TO NOTIFY OF CRITICAL RESULT: [id number]. CALL PLACED TO MD RAMIREZ. MD RAMIREZ WITH ORDERS FOR ABG.
--- NOTE | 2021-04-14 06:35 | NUR ---
SHIFT SUMMARY NO ACUTE CHANGES THIS SHIFT. PT A&OX4, PLEASANT. SP02>92% ON BIPAP 02/10, 30% FI02. TELEMETYR SHOWS NSR, HR 70'S. PT DENIES PAIN. SMALL BM THIS SHIFT. SAWANT CATHETER DRAINING TO GRAVITY. PT UP IN CHAIR AT START OF SHIFT. USED LIFT TO MOVE PT INTO BED. PT REQUESTED ICE CUBES FREQUENTLY. CALL LIGHT IN REACH.
[2021-04-14 07:58] LABS: PCO2 Arterial 76.9 mmHg (35-45); PO2 Arterial 64.2 mmHg (80-100); pH Blood Arterial 7.46 (7.35-7.45)
--- NOTE | 2021-04-14 19:28 | NUR ---
SHIFT SUMMARY PT A&Ox4; ANXIOUS AT TIMES, COOPERATIVE WITH CARE. LIFT USED TO PLACE PT UP IN CHAIR THIS AM, REMAINED UP T/O SHIFT. PT DENIES PAIN, CHEST PAIN/PRESSURE, NAUSEA AND NUMB/TINGLING. PT SOB AT REST, BIPAP 18/8 25-30% FIO2 BUR 10; BIPAP BREAKS FOR MEALS, TOLERATING 5-6L O2 VIA NC. PT REPORTS DIZZINESS WITH ROLLING SIDE TO SIDE IN BED, PT REPORTS PASSES QUICKLY. PT RECEIVING POTASSIUM PHOSPHATE REPLACEMENT THIS AM. VSS. NO OTHER ACUTE CHANGES NOTED. DURING SHIFT. REPORT GIVEN TO ONCOMING RN.
--- NOTE | 2021-04-15 06:12 | NUR ---
SHIFT SUMMARY NO ACUTE CHANGES THIS SHIFT. PT A&OX4. SP02>90% ON BIPAP. TELEMETRY SHOWS NSR, HR 70'S. PT DENIED PAIN. SAWANT CATHETER DRAINING TO GRAVITY. NO BM THIS SHFIT. PT UP IN CHAIR AT START OF SHIFT. USED LIFT TO TRANSFER PATIENT TO BED. 1/2 NS INFUSING TKO PER EMAR. PT SLEPT OFF AND ON DURING NIGHT. CALL LIGHT IN REACH.
[2021-04-15 08:41] LABS: Albumin, Blood 2.9 g/dL (3.4-5.0); Blood Urea Nitrogen 34 mg/dL (8-24); Bun/Creatinine Ratio 52.5 (12.0-20.0); Chloride, Blood 94 mmol/L (98-108); Creatinine, Blood 0.65 mg/dL (0.40-1.00); Glomerular Filtration Rate >60 (60-); Glucose, Blood 125 mg/dL (70-99); Magnesium, Blood 1.9 mg/dL (1.6-2.4); Phosphorus, Blood 2.6 mg/dL (2.5-4.9); Potassium, Blood 3.7 mmol/L (3.5-5.5); Sodium, Blood 145 mmol/L (136-145)
[2021-04-15 12:11] LABS: Anion Gap Unable to Calculate mmol/L (6-16)
[2021-04-15 12:13] LABS: CO2, Blood >45 mmol/L (21-32)
--- NOTE | 2021-04-15 16:18 | NUR ---
Spiritual care visit conducted. Patient immediately talks about how she is struggling to deal with a new hospice diagnosis, how her family is dealing with it and her spiritual questions centered around heaven and hell. I explore what a meaningful, good might look like, what she might bring to her family at a time like this and what kind of family and friend support that she might have available. We explore her muslim beliefs about God and the after life. I reinforce helpful concepts and ideas, normalize the questions and the struggle and provide theological insights, gentle head counselor and direction and prayer. Patient reponds well and show signs of catharsis and increased peace. I will continue to remain available to patient and family.
--- NOTE | 2021-04-15 16:59 | NUR ---
Pt transitioned to comfort care today. No c/o pain. Denies SOB. FC maintained. No BM. Tolerating current diet. Repositioned as needed to promote pt comfort. Tentative d/c home on hospice . Frequent rounds to ensure pt safety. Pt in no apparent distress at this time. Will continue to monitor until transfer of care to oncoming RN.
--- NOTE | 2021-04-16 06:24 | NUR ---
SHIFT SUMMARY NO ACUTE CHANGES THIS SHIFT. PT A&OX4. SP02>92% ON BIPAP 25%. PT CC STATUS, NO VITALS, NO TELE. PT DENIED PAIN. PT UP IN CHAIR FOR START OF SHIFT. USED CEILING LIFT TO TRANSFER PT TO BED. SAWANT CATHETER DRAINING URINE TO GRAVITY. NO BM THIS SHIFT. PT SLEPT MOST OF NIGHT. CALL [facility].
--- NOTE | 2021-04-16 09:00 | NUR ---
PT REPOSITIONED UP IN BED THIS AM FOR BREAKFAST. PT DENIES ANY PAIN AT THIS TIME. PT ASKED TO STAY IN BED UNTIL TIME FOR DISCHARGE TODAY. EXPECT DISCHARGE AT 11:00 AM. PT APPEARS COMFORTABLE AT THIS TIME BIPAP BACK ON
[2021-04-16] MEDS ORDERED: FURO40 PO (10:53)
[2021-04-16] MEDS ORDERED: METPRE4 PO (10:54)
[2021-04-16] MEDS ORDERED: Ativan1 MG PO (10:56)
[2021-04-16] MEDS ORDERED: MORP20L PO (10:58)
[2021-04-16] MEDS ORDERED: ONDA4 PO (10:59)
--- NOTE | 2021-04-16 11:01 | NUR ---
Spoke with Saskia D/C [facility] [employer] Naomi and discussed case. Pt to D/C home with hospice services today at 1100. Spoke with Primary RN Leo and discussed case. No concerns reported at this time. Pt resting in bed and on BIPAP. Listened as Pt reports being ready to go home. Pt denies pain at this time. Pt reports SOB is improved with BIPAP. Pt reports being in agreement with D/C plan with no concerns at this time. Palliative Care will remain available.
--- NOTE | 2021-04-16 12:06 | NUR ---
PT DISCHARGED THE PT WAS DC'D WITH HOSPICE. PT VERBALIZED UNDERSTANDING OF THE DC INSTRUCTIONS. THE PT WAS TRANSFERED VIA GURNEY ACCOMPANIED BY AMBULANCE STAFF. PTS NOTIFIED OF THE TRANSFER. BELONGINGS RELEASED TO THE PT. PRESCRIPTIONS SENT IN THE PTS PACKET
--- NOTE | 2021-04-16 16:30 | NUR ---
Per Dr. Leah Ling discharge appropriate. Patient does not oppose discharge. Patient is discharged to residence with Hospice. [facility] notified of discharge and was at the home when patient arrived. Date of discharge: 04/16/2021 Date of admission: 04/05/2021 Provisional diagnosis at time of admission: respiratory failure Final Diagnosis at time of discharge: respiratory failure Transportation provided by: [facility] ambulance gurney with Oxygen Location/Residence: [address] [place] [address] DME Ordered: [facility] ordered BPAP and will order other DME hospice needs for home setup Follow-ups needed: [facility] will contact patient to schedule hospital follow-up if needed. Provider/PCP: Dr. Jessica Ling When: WITHIN 1 WEEK Specialty: Hospice Confirmed numbers: [phone] Daughter Nell [phone] Comment: None
== END 2021-04-16 11:39 | disposition hospice, home (50) | DRG 189 ==
LOC: ER 10:29 → PCU 13:36
PROVIDERS: Emergency Medicine; Hospitalist; Internal Medicine; Internal Medicine Nephrology; Nurse Practitioner Acute Care; ADMIT Internal Medicine
PROC: 5A09557 Assistance with Respiratory Ventilation, Greater than 96 Consecutive Hours, Continuous Positive Airway Pressure (ICD-10-PCS; principal; 2021-04-05)
DX: J96.21 Acute and chronic respiratory failure with hypoxia (principal); J18.9 Pneumonia, unspecified organism; Z68.44 Body mass index [BMI] 60.0-69.9, adult; E66.2 Morbid (severe) obesity with alveolar hypoventilation; E87.4 Mixed disorder of acid-base balance; N17.9 Acute kidney failure, unspecified; J96.22 Acute and chronic respiratory failure with hypercapnia; I12.9 Hypertensive chronic kidney disease with stage 1 through stage 4 chronic kidney disease, or unspecified chronic kidney disease; G89.4 Chronic pain syndrome; Z20.822 Contact with and (suspected) exposure to COVID-19; I25.10 Atherosclerotic heart disease of native coronary artery without angina pectoris; F41.8 Other specified anxiety disorders; E87.5 Hyperkalemia; N18.9 Chronic kidney disease, unspecified; B37.9 Candidiasis, unspecified; I27.81 Cor pulmonale (chronic); D69.6 Thrombocytopenia, unspecified; Z66 Do not resuscitate; D63.1 Anemia in chronic kidney disease; E11.22 Type 2 diabetes mellitus with diabetic chronic kidney disease; E78.5 Hyperlipidemia, unspecified; Z90.49 Acquired absence of other specified parts of digestive tract; Z90.89 Acquired absence of other organs; Z98.890 Other specified postprocedural states; Z88.2 Allergy status to sulfonamides; Z90.710 Acquired absence of both cervix and uterus; Z98.891 History of uterine scar from previous surgery; Z51.5 Encounter for palliative care
CPT/HCPCS: 0241U; 36415; 36600; 51702; 71045; 71260; 80048; 80053; 80069; 81001; 82803; 82947; 83605; 83735; 83880; 84100; 84132; 84145; 84484; 85014; 85018; 85025; 85027; 85379; 87040; 87086; 92526; 92610; 93005; 93010; 93306; 94640; 94660; 94762; 96365; 96375; 97110; 97162; 97166; 97530; 99285-25; A9270; C1751; J0456; J0610; J0696; J1450; J1650; J1815; J1940; J2920; J2930; J7050; J7060; J7509; P9046; Q9967

== ENCOUNTER → 2021-08-08 | Outpatient (CLI) | payer MEDICARE, OTHER ==
[~2021-08-08] MED LIST changes: +Ativan1 MG PO; +FURO40 PO; +METPRE4 PO; +MORP20L PO; +ONDA4 PO; +TIZANIDINE HCL PO
[2021-08-08 12:27] LABS: Albumin, Blood 2.4 g/dL (3.4-5.0); Albumin/Globulin Ratio 0.4 (0.8-1.8); Bilirubin, Total 0.5 mg/dL (0.1-1.0); Bun/Creatinine Ratio 17.4 (12.0-20.0); Calcium, Blood 8.9 mg/dL (8.5-10.1); Creatinine, Blood 0.69 mg/dL (0.40-1.00); Globulin, Blood 6.1 g/dL (2.2-4.0); Potassium, Blood 3.8 mmol/L (3.5-5.5); Total Protein, Blood 8.5 g/dL (6.4-8.2)
== END ==
LOC: LAB SHORT 12:10 → LAB 12:10
PROVIDERS: Physician Assistant
DX: E11.9 Type 2 diabetes mellitus without complications (principal); I10 Essential (primary) hypertension
CPT/HCPCS: 80053; 83036

== ENCOUNTER 2022-05-22 23:42 | Emergency (ER) | payer MEDICARE, OTHER ==
[~2022-05-22] VITALS: Ht 167.6 cm; Wt 181.4 kg
[~2022-05-22 23:42] MED LIST changes: +CEFP200 PO
[2022-05-23] MEDS ORDERED: OXYC5 PO ×2 (04:02→04:45)
== END 2022-05-23 05:12 | disposition home or self-care (01) ==
LOC: ER 23:42
DX: S82.842A Displaced bimalleolar fracture of left lower leg, initial encounter for closed fracture (principal); S80.212A Abrasion, left knee, initial encounter; S80.211A Abrasion, right knee, initial encounter; S80.812A Abrasion, left lower leg, initial encounter; I10 Essential (primary) hypertension; W07.XXXA Fall from chair, initial encounter; Z88.2 Allergy status to sulfonamides; Z79.899 Other long term (current) drug therapy
CPT/HCPCS: 29515; 73562-LT; 73562-RT; 73600; 73620; 96372-59; 99283-25; A9270; J1885

== ENCOUNTER 2022-12-21 07:37 | Emergency (ER) | payer MEDICARE, OTHER ==
[~2022-12-21] VITALS: Ht 167.6 cm; Wt 146.1 kg
[~2022-12-21 07:37] MED LIST changes: +OXYC5 PO
[2022-12-21 07:48] VITALS: BP 173/88
[2022-12-21 10:16] LABS: BASOPHILS ABSOLUTE AUTO 0.03 K/mm3 (0.00-0.23); BASOPHILS PERCENT AUTO 0 % (0-2); EOSINOPHILS PERCENT AUTO 0 % (0-6); Hematocrit 41.1 % (33.0-51.0); IMMATURE GRAN ABSOLUTE AUTO 0.05 K/mm3 (0.00-0.10); IMMATURE GRAN PERCENT AUTO 1 % (0-1); LYMPHOCYTES ABSOLUTE AUTO 0.34 K/mm3 (0.84-5.20); LYMPHOCYTES PERCENT AUTO 5 % (21-46); MONOCYTES ABSOLUTE AUTO 0.27 K/mm3 (0.16-1.47); MONOCYTES PERCENT AUTO 4 % (4-13); Mean Corpuscular HGB 30.4 pg (26.0-34.0); Mean Corpuscular HGB Conc 31.6 g/dL (31.5-36.5); Mean Corpuscular Volume 96 fL (80-100); Mean Platelet Volume 10.5 fL (9.1-12.4); NEUTROPHILS ABSOLUTE AUTO 6.42 K/mm3 (1.96-9.15); NEUTROPHILS PERCENT AUTO 90 % (41-73); Platelet Count 142 K/mm3 (150-400); RDW Coefficient Variation 15.1 % (11.7-14.2); RDW Standard Deviation 54.1 fL (35.1-46.3); Red Blood Cell Count 4.27 M/mm3 (3.80-5.20); White Blood Cell Count 7.11 K/mm3 (4.00-11.30)
[2022-12-21 10:37] LABS: Albumin, Blood 2.1 g/dL (3.4-5.0); Albumin/Globulin Ratio 0.3 (0.8-1.8); Bilirubin, Total 1.7 mg/dL (0.1-1.0); Bun/Creatinine Ratio 16.5 (12.0-20.0); Calcium, Blood 8.7 mg/dL (8.5-10.1); Creatinine, Blood 0.91 mg/dL (0.40-1.00); Potassium, Blood 4.1 mmol/L (3.5-5.5); Total Protein, Blood 9.1 g/dL (6.4-8.2)
[2022-12-21 10:40] LABS: BAND PERCENT MAN 3 % (0-8); BASOPHILS PERCENT MAN 0 % (0-2); EOSINOPHILS PERCENT MAN 0 % (0-6); LYMPHOCYTES ABSOLUTE MAN 0.21 K/mm3 (0.84-5.20); LYMPHOCYTES PERCENT MAN 3 % (21-46); MONOCYTES ABSOLUTE MAN 0.28 K/mm3 (0.16-1.47); MONOCYTES PERCENT MAN 4 % (4-13); NEUTROPHILS ABSOLUTE MAN 6.61 K/mm3 (1.96-9.15); SEG NEUTROPHILS PERCENT MAN 90 % (41-73); TOTAL CELLS COUNTED 100
[2022-12-21] MEDS ORDERED: DOC250 PO (12:17)
[2022-12-21] MEDS ORDERED: ONDA4ODT MM (12:17)
[2022-12-21] MEDS ORDERED: Percocet 5-3251 EACH PO (12:17)
[2022-12-21] MEDS ORDERED: CEPH500 PO (14:07)
== END 2022-12-21 16:20 | disposition home or self-care (01) ==
LOC: ER 07:37
PROVIDERS: Emergency Medicine
DX: E11.65 Type 2 diabetes mellitus with hyperglycemia (principal); M25.551 Pain in right hip; E66.01 Morbid (severe) obesity due to excess calories; Z68.43 Body mass index [BMI] 50.0-59.9, adult; M16.11 Unilateral primary osteoarthritis, right hip; Z88.2 Allergy status to sulfonamides; Z79.899 Other long term (current) drug therapy; Z79.52 Long term (current) use of systemic steroids; I10 Essential (primary) hypertension; G47.33 Obstructive sleep apnea (adult) (pediatric); J45.909 Unspecified asthma, uncomplicated
CPT/HCPCS: 73502; 80053; 82947; 85025; 93971; 96374; 96375; 99285-25; A9270; J1815; J2405; J3010; J7030

== ENCOUNTER 2022-12-22 23:23 | Inpatient (IN) | payer MEDICARE, OTHER ==
[~2022-12-22] VITALS: Ht 167.6 cm; Wt 155.0 kg
[~2022-12-22 23:23] MED LIST changes: +CEPH500 PO; +DOC250 PO; +ONDA4ODT MM; +Percocet 5-3251 EACH PO
[2022-12-22 23:51] LABS: Hematocrit 35.6 % (33.0-51.0); Hemoglobin 11.4 g/dL (11.5-16.0); Mean Corpuscular HGB 30.2 pg (26.0-34.0); Mean Corpuscular Volume 94 fL (80-100); Mean Platelet Volume 9.4 fL (9.1-12.4); Platelet Count 127 K/mm3 (150-400); RDW Coefficient Variation 15.6 % (11.7-14.2); RDW Standard Deviation 54.2 fL (35.1-46.3); Red Blood Cell Count 3.77 M/mm3 (3.80-5.20); White Blood Cell Count 21.94 K/mm3 (4.00-11.30)
[2022-12-23] VITALS (84 sets, daily range): BP systolic 62–165; BP diastolic 38–78
[2022-12-23 00:13] LABS: BAND PERCENT MAN 13 % (0-8); BASOPHILS PERCENT MAN 0 % (0-2); EOSINOPHILS PERCENT MAN 0 % (0-6); LYMPHOCYTES ABSOLUTE MAN 0.87 K/mm3 (0.84-5.20); LYMPHOCYTES PERCENT MAN 4 % (21-46); MONOCYTES ABSOLUTE MAN 1.09 K/mm3 (0.16-1.47); MONOCYTES PERCENT MAN 5 % (4-13); NEUTROPHILS ABSOLUTE MAN 19.96 K/mm3 (1.96-9.15); SEG NEUTROPHILS PERCENT MAN 78 % (41-73); TOTAL CELLS COUNTED 100
[2022-12-23 00:28] LABS: Base Excess Venous -5.5 mmol/L; Bicarbonate Venous 19.5 mmol/L (24.0-30.0); pH Blood Venous 7.25 (7.34-7.37)
[2022-12-23 00:28] LABS: Beta-hydroxybutyrate 5.2 mg/dL (0.2-2.8); Magnesium, Blood 1.4 mg/dL (1.6-2.4); Salicylate <1.7 mg/dL (2.8-20.0)
[2022-12-23 00:34] LABS: Acetaminophen, Random <2.0 ug/mL (10.0-30.0); Alanine Aminotransfer (ALT/SGP 53 U/L (12-78); Albumin, Blood 1.6 g/dL (3.4-5.0); Albumin/Globulin Ratio 0.3 (0.8-1.8); Alk Phos 149 U/L (50-136); Anion Gap 13 mmol/L (6-16); Aspartate Aminotrans (AST/SGOT 112 U/L (12-37); Bilirubin, Total 1.4 mg/dL (0.1-1.0); Blood Urea Nitrogen 38 mg/dL (8-24); Bun/Creatinine Ratio 12.3 (12.0-20.0); CO2, Blood 22 mmol/L (21-32); Calcium, Blood 7.9 mg/dL (8.5-10.1); Chloride, Blood 92 mmol/L (98-108); Creatinine, Blood 3.09 mg/dL (0.40-1.00); Globulin, Blood 6.2 g/dL (2.2-4.0); Glomerular Filtration Rate 15 (60-); Glucose, Blood 389 mg/dL (70-99); Phosphorus, Blood 4.1 mg/dL (2.5-4.9); Potassium, Blood 5.2 mmol/L (3.5-5.5); Sodium, Blood 127 mmol/L (136-145); Total Protein, Blood 7.8 g/dL (6.4-8.2)
[2022-12-23 01:31] LABS: Source, Urine Clean Catch
[2022-12-23 01:37] LABS: Appearance, Urine Turbid (Clear); Bilirubin, Urine Neg (Neg); Blood, Urine 5+ (Neg); Glucose Qualitative, Urine Neg (Neg); Ketones, Urine 1+ (Neg); Leukocyte Esterase, Urine 3+ (Neg); Nitrite, Urine Pos (Neg); Protein, Urine 3+ (Neg); Urobilinogen, Urine NORM (Normal)
[2022-12-23 02:20] LABS: Color, Urine Pale Yellow (P-Yellow)
[2022-12-23 02:22] LABS: Bacteria Many /hpf; Squamous Epithelial Cells Not Seen /hpf (Few); White Blood Cells, Urine TNTC /hpf (0-5)
[2022-12-23 03:36] LABS: Hematocrit 35.6 % (33.0-51.0); Hemoglobin 11.3 g/dL (11.5-16.0); Mean Corpuscular HGB 30.1 pg (26.0-34.0); Mean Corpuscular HGB Conc 31.7 g/dL (31.5-36.5); Mean Corpuscular Volume 95 fL (80-100); Mean Platelet Volume 10.4 fL (9.1-12.4); Platelet Count 112 K/mm3 (150-400); RDW Coefficient Variation 15.6 % (11.7-14.2); RDW Standard Deviation 54.3 fL (35.1-46.3); Red Blood Cell Count 3.75 M/mm3 (3.80-5.20)
[2022-12-23 03:53] LABS: Bun/Creatinine Ratio 11.6 (12.0-20.0); Calcium, Blood 7.7 mg/dL (8.5-10.1); Creatinine, Blood 3.28 mg/dL (0.40-1.00); Potassium, Blood 4.8 mmol/L (3.5-5.5)
[2022-12-23 03:58] LABS: BAND PERCENT MAN 7 % (0-8); BASOPHILS PERCENT MAN 1 % (0-2); EOSINOPHILS PERCENT MAN 0 % (0-6); LYMPHOCYTES % ATYPICAL MANUAL 1 % (0-0); LYMPHOCYTES ABSOLUTE MAN 0.58 K/mm3 (0.84-5.20); LYMPHOCYTES PERCENT MAN 3 % (21-46); MONOCYTES ABSOLUTE MAN 0.29 K/mm3 (0.16-1.47); MONOCYTES PERCENT MAN 2 % (4-13); NEUTROPHILS ABSOLUTE MAN 13.28 K/mm3 (1.96-9.15); SEG NEUTROPHILS PERCENT MAN 84 % (41-73); TOTAL CELLS COUNTED 100
[2022-12-23 03:59] LABS: BASOPHILS ABSOLUTE MAN 0.14 K/mm3 (0.00-0.23); METAMYELOCYTE ABSOLUTE MAN 0.29 K/mm3 (0.00-0.00); METAMYELOCYTE PERCENT MAN 2 % (0-0)
[2022-12-23 04:19] LABS: Source, Urine Foley catheter
[2022-12-23 05:05] LABS: Blood, Urine 5+ (Neg); Glucose Qualitative, Urine Neg (Neg); Ketones, Urine 1+ (Neg); Leukocyte Esterase, Urine 3+ (Neg); Nitrite, Urine Neg (Neg); Protein, Urine 4+ (Neg); Urobilinogen, Urine 2+ (Normal)
[2022-12-23 05:18] LABS: Bilirubin, Urine 1+ (Neg)
[2022-12-23 05:19] LABS: Appearance, Urine Turbid (Clear); Color, Urine Yellow (P-Yellow)
[2022-12-23 05:22] LABS: Bacteria Many /hpf; Squamous Epithelial Cells Not Seen /hpf (Few); White Blood Cells, Urine TNTC /hpf (0-5)
--- NOTE | 2022-12-23 07:19 | NUR ---
ER ADMIT TO ICU 7: PT ARRIVED TO THE UNIT AT 0240; PT ADMITTED TO THE UNIT WITH SEPTIC SHOCK. PT ARRIVED TO THE UNIT WITH SBP 110'S, MAP 70<. PT LETHARGIC BUT AROUSABLE TO VERBAL STIMULI; PT ABLE TO STATE NAME, AND ABLE TO DESCRIBE SITUATION THAT BROUGHT HER TO THE ER, BUT NOT ABLE TO STATE WHERE SHE IS AT OR DATE/YEAR. PT ARRIVES ON NC @ 2LPM; LUNG SOUNDS NOTED TO HAVE EXPIRATORY WHEEZES IN R. SIDE WITH MORE DIMINSHED SOUNDS IN L. SIDE. SPO2 96< AND RR 20-22. PT ST ON MONITOR SINCE ARRIVAL WITH HR 110'S, SBP 80-90'S. PT RECIEVED A TOTAL OF THREE LITERS OF NS BOLUS AND NOW HAS NS @ 150 ML/HR. PIV TO OSCAR AND LAC; BOTH PATENT. PT HAD SAWANT CATHETER PLACED IN ER AND UA SENT AFTER ARRIVAL TO UNIT. URINE VERY STEW IN COLOR WITH THICK/WHITE SEDIMENTS NOTED. URINE OUTPUT NOTED TO BE VERY LITTLE SINCE ARRIVAL; URINE MALODOROUS. PERINEAL/BUTTOCKS VERY EXCORIATED AND PAINFUL TO TOUCH (SEE PICTURES IN CHART). PT'S STATED TO GREETING CARD EDITOR THAT SHE HAS BEEN BEDBOUND FOR THE PAST FOUR MONTHS AFTER FALLING OUT OF HER RECLINER AT HOME. PT COMPLAINS OF HIP PAIN BILATERALLY; Q 2HR REPOSITIONING. PT RECIEVED BED BATH AFTER ARRIVAL AND ALL SKIN FOLDS DRIED AND PILLOW CASES PLACED. PT MOVING BUE BUT BLE OBSERVED TO HAVE LIMITED ROM AND PT CANNOT MOVE THEM WHEN ASKED TO. BEDSIDE SHIFT REPORT GIVEN TO DAVID WEST; DURING THIS TIME IT WAS NOTED THAT PT WAS BECOMING MORE HYPOTENSIVE. CALL PLACED TO PROVIDER FOR UPDATE.
--- NOTE | 2022-12-23 11:31 | NUR ---
CARE OF PT ASSUMED AT 0700. DURING BEDSIDE REPORT PT NOTED TO BE HYPOTENSIVE W MAP IN THE 50'S. DR THOMAS AND DR RAMIREZ NOTIFIED. PICC AND LEVOPHED ORDERED. PT INITIALLY DROWSY, BUT WOULD AWAKEN TO VOICE AND ANSWER QUESTIONS APPROPRIATELY. PT GAVE PERMISSION TO PLACE PICC. PICC PLACED W/O DIFFICULTY AND LEVOPHED INITIALLY STARTED AT 2MCG. LEVOPHED NOW AT 5MCG. AFTER PICC PLACED PT DID HAVE SOME PERIODS OF CONFUSION, AT ONE POINT PT THOUGHT SHE WAS AT HOME BUT WAS ABLE TO RE-ORIENT HERSELF. PT NOW WIDE AWAKE AND ORIENTED X4. RIGHT LEG NOTED TO BE WARM, RED, AND MORE SWOLLEN THAN LEFT, DOPPLER ORDERED; PT NEG FOR DVT. DR THOMAS IN TO SEE PT, FULL UPDATE GIVEN; SEE NEW ORDERS. LACTIC IMPROVED. FAMILY AT BEDSIDE ( AND DAUGHTER) AND UPDATED.
[2022-12-23] MEDS ORDERED: GABA300 PO (13:17)
[2022-12-23 13:33] LABS: Hematocrit 32.5 % (33.0-51.0); Hemoglobin 10.2 g/dL (11.5-16.0); Mean Corpuscular HGB 29.8 pg (26.0-34.0); Mean Corpuscular HGB Conc 31.4 g/dL (31.5-36.5); Mean Corpuscular Volume 95 fL (80-100); Mean Platelet Volume 9.5 fL (9.1-12.4); Platelet Count 122 K/mm3 (150-400); RDW Coefficient Variation 15.8 % (11.7-14.2); RDW Standard Deviation 55.5 fL (35.1-46.3); Red Blood Cell Count 3.42 M/mm3 (3.80-5.20); White Blood Cell Count 21.12 K/mm3 (4.00-11.30)
[2022-12-23 13:51] LABS: BAND PERCENT MAN 10 % (0-8); BASOPHILS PERCENT MAN 0 % (0-2); EOSINOPHILS PERCENT MAN 0 % (0-6); LYMPHOCYTES ABSOLUTE MAN 0.42 K/mm3 (0.84-5.20); LYMPHOCYTES PERCENT MAN 2 % (21-46); MONOCYTES ABSOLUTE MAN 1.47 K/mm3 (0.16-1.47); MONOCYTES PERCENT MAN 7 % (4-13); NEUTROPHILS ABSOLUTE MAN 19.21 K/mm3 (1.96-9.15); SEG NEUTROPHILS PERCENT MAN 81 % (41-73); TOTAL CELLS COUNTED 100
[2022-12-23 15:00] LABS: Albumin, Blood 1.4 g/dL (3.4-5.0); Albumin/Globulin Ratio 0.3 (0.8-1.8); Bilirubin, Total 1.1 mg/dL (0.1-1.0); Bun/Creatinine Ratio 14.6 (12.0-20.0); Creatinine, Blood 2.8 mg/dL (0.40-1.00); Globulin, Blood 5.3 g/dL (2.2-4.0); Potassium, Blood 4.4 mmol/L (3.5-5.5); Total Protein, Blood 6.7 g/dL (6.4-8.2)
--- NOTE | 2022-12-23 15:17 | NUR ---
DR DAVILA IN TO ASSESS BUTTOCK WOUND. PT TURNED W 3 RN ASSIST. STAGE 1 PRESSURE ULCERS NOTED; SEVERAL AREAS DARK PURPLE AND DO NOT JESS, NO OPEN WOUNDS. SKIN IS EXCORIATED DIFFUSLY OVER BUTTOCK AREA AND IN FOLDS/GROIN/NAOMI AREA. NO SURGICAL INTERVENTION REQUIRED PER DR DAVILA. PT IN SEVERE PAIN AFTER TURN, 10/10 TO HIPS AND BACK. FENTANYL 25MCG GIVEN, BED BATH STARTED PT ON HER FAR LEFT SIDE. PT CONTINUED TO HAVE PAIN 10/10, PT CRYING OUT. DR THOMAS CALLED AND UPDATED. DILAUDID 1MG ORDERED AND GIVEN W GOOD EFFECT. NS DECREASED TO 50CC/HR. ALBUMIN TO BE GIVEN. ABG ORDERED. LACTIC ACID REVIEW W DR THOMAS. PT PLACED ON BARIATRIC BED USING LIFT. LEVOPHED GTT UP TO 8MCG. PT IN SINUS TACH 120-130'S. PT SLEEPING, APPEARS COMFORTABLE. FAMILY AT BEDSIDE, UPDATED.
[2022-12-23 15:42] LABS: PCO2 Arterial 45.1 mmHg (35-45); PO2 Arterial 81.3 mmHg (80-100)
[2022-12-23 15:43] LABS: pH Blood Arterial 7.26 (7.35-7.45)
--- NOTE | 2022-12-23 16:14 | NUR ---
ABG RESULTS CALLED TO DR THOMAS. ALBUMIN INFUSING. DR THOMAS AT BEDSIDE TO CHECK ON PT, FAMILY UPDATED. PT RESPONDING WELL TO ALBUMIN, LEVOPHED TITRATED DOWN TO 6MCG. 10UNITS INSULIN GIVEN SQ, BS TO BE REPEATED AT 1800 W HIGH SS COVERAGE.
--- NOTE | 2022-12-23 18:37 | NUR ---
BP IMPROVED DURING ALBUMIN INFUSION AND REMAINED UP FOR SEVERAL HOURS AFTER INFUSION, IN THAT TIME LEVOPHED TITRATED DOWN AND PLACED ON STANDBY. BP HAS STARTED TO TREND DOWN AGAIN. BP NOW 92/45 W MAP 58, LEVOPHED RESTARTED AT 2MCG. NS AT 50CC/HR. PT WEARING HOME CPAP W 3L BLEED-IN. PT SLEEPING, TOLERATING TURNS SINCE ADMINISTRATION OF DILAUDID AT 1452. PT AWAKENS TO VOICE AND ABLE TO ANSWER QUESTIONS APPROPRIATELY.
--- NOTE | 2022-12-23 19:42 | NUR ---
ASSUMPTION OF CARE PT IS LETHARGIC, AROUSES TO VERBAL STIMULI AND FALLS RIGHT BACK TO SLEEP, SHE DID NOT ANSWER ANY QUESTIONS AT THIS TIME. SHE IS ST ON THE CLEANING PORTER, HYPOTENSIVE W/LEVOPHED INFUSING, TITRATE FOR MAP>65. PT HAS A LOW GRADE FEVER. SHE IS ON HER HOME CPAP W/3L BLEED IN. OXYGEN SAT AT THIS TIME IS 97%. SHE SHOWS NO S/S OF ACUTE DISTRESS. BARREL LINE OPERATOR KASI NOTIFIED OF PT LETHARGY, VBG ORDERED-AWAITING RESULTS. SAWANT CATH INTACT PATENT AND DRAINING TO GRAVITY.
[2022-12-23 19:48] LABS: Base Excess Venous -7.5 mmol/L; Bicarbonate Venous 18.6 mmol/L (24.0-30.0); PCO2 Venous 44.8 mmHg (38-42)
[2022-12-23 19:49] LABS: pH Blood Venous 7.25 (7.34-7.37)
[2022-12-24] VITALS (96 sets, daily range): BP systolic 84–132; BP diastolic 45–84
[2022-12-24 05:52] LABS: Hematocrit 31.3 % (33.0-51.0); Mean Corpuscular HGB Conc 31.9 g/dL (31.5-36.5); Mean Corpuscular Volume 94 fL (80-100); Mean Platelet Volume 10.1 fL (9.1-12.4); Platelet Count 103 K/mm3 (150-400); RDW Coefficient Variation 15.9 % (11.7-14.2); RDW Standard Deviation 54.9 fL (35.1-46.3); Red Blood Cell Count 3.33 M/mm3 (3.80-5.20); White Blood Cell Count 20.54 K/mm3 (4.00-11.30)
[2022-12-24 06:06] LABS: Albumin, Blood 1.6 g/dL (3.4-5.0); Albumin/Globulin Ratio 0.3 (0.8-1.8); Bilirubin, Total 1.3 mg/dL (0.1-1.0); Bun/Creatinine Ratio 15.7 (12.0-20.0); Calcium, Blood 7.3 mg/dL (8.5-10.1); Creatinine, Blood 2.93 mg/dL (0.40-1.00); Globulin, Blood 5.2 g/dL (2.2-4.0); Potassium, Blood 4.4 mmol/L (3.5-5.5); Total Protein, Blood 6.8 g/dL (6.4-8.2)
[2022-12-24 06:13] LABS: BAND PERCENT MAN 5 % (0-8); BASOPHILS PERCENT MAN 0 % (0-2); EOSINOPHILS PERCENT MAN 0 % (0-6); LYMPHOCYTES ABSOLUTE MAN 1.02 K/mm3 (0.84-5.20); LYMPHOCYTES PERCENT MAN 5 % (21-46); MONOCYTES ABSOLUTE MAN 1.64 K/mm3 (0.16-1.47); MONOCYTES PERCENT MAN 8 % (4-13); NEUTROPHILS ABSOLUTE MAN 17.86 K/mm3 (1.96-9.15); SEG NEUTROPHILS PERCENT MAN 82 % (41-73); TOTAL CELLS COUNTED 100
--- NOTE | 2022-12-24 06:32 | NUR ---
SHIFT SUMMERY PT HAS REMAINED LETHARGIC OVERNIGHT. SHE HAS BEEN ON HER HOME CPAP THE ENTIRE SHIFT W/3L BLEED IN . OXYGEN SAT 95% W/NO RESP DISTRESS THIS SHIFT. PT IS SR ON THE VARNISH THINNER. PT IS HYPOTENSIVE W/LEVOPHED INFUSING TO MAINTAIN MAP >65, CURRENTLY AT 7MCGS. PT WILL OPEN HER EYES BUT WILL NOT FOLLOW DIRECTION OR ANSWER QUESTIONS. SHE HAS A LOW GRADE TEMP OVERNIGHT. UOP LOW BUT CONSISTANT W/PRIOR SHIFT. PT HAS HAD NO ACUTE DISTRESS THIS SHIFT.
--- NOTE | 2022-12-24 07:00 | NUR ---
ASSUMPTION OF CARE: ASSUMED CARE OF PATIENT WITH DAVID POLANCO. PATIENT RESTING IN BED. PATIENT AWAKENS TO VOICE AND ANSWERS. DIFFICULT TO UNDERSTAND ALL RESPONSES WITH CPAP IN PLACE. CPAP IN PLACE WITH SLEEP FOR THE PATIENT. PRESSURE OF 8 AND BLEED IN OF 3L O2. SPO2 IN THE MID 90S. RR 14-16. NO SIGNS OF RESPIRATORY DISTRESS AT THIS TIME. PATIENT ABLE TO FOLLOW COMMANDS (EX: WIGGLE TOES). PATIENT QUICKLY FALLS BACK ASLEEP. LEVOPHED GTT INFUSING AT 7 MCG/KG/MIN AND NS AT 50ML/HR. MAPS >65. SAWANT CATHETER IN PLACE WITH STEW/DARK URINE IN DRAINAGE BAG. DRAINING FREELY.
--- NOTE | 2022-12-24 07:15 | NUR ---
CARE ASSUMPTION DURING BEDSIDE SHIFT REPORT W DAVID AND MALCOM RN'S THE PT IS LYING IN BED WEARING CPAP MASK W 3L BLEED-IN. PT IS AXO X4 AND COMMUNICATING APPROPRIATELY W STAFF. PT HAS LEVOPHED GTT RUNNING AT 3MCG/MIN. PT'S MONITOR SHOWING SR 70'S. PT'S FAMILY AT BEDSIDE AT THIS TIME.
--- NOTE | 2022-12-24 12:03 | NUR ---
PT AWAKE WITH GENERALIZED C/O PAIN INCLUDING JOINT PAIN AND CALDERON. CPAP REMOVED AND O2 PLACED AT 2L VIA N/C. PT TOLERATED THE BREAK AND WAS ABLE TO SAFELY SWALLOW TYLENOL. BANDAID REMOVED FROM BRIDGE OF NOSE, BRIDGE OF NOSE RED AND BLEEDING. PT HAD BREAKDOWN ON ADMIT FROM HOME CPAP. ANOTHER PICTURE TAKEN AND FOAM DRSG APPLIED. RT CALLED, PT'S HOME MASK REPLACED WITH FULL FACE MASK. ALBUMIN AND LASIX ORDERED BY DR THOMAS; PT HAS TOLERATED LASIX WITH IMPROVED URINE OUTPUT. LEVOPHED IS AT 6MCG AND IS BEING TITRATED DOWN TOLERATED. PT GIVEN FULL BEDBATH W LINEN CHANGE. BOTTOM/COCCYX WITH STAGE 1 PRESSURE ULCERS, ULCER TO COCCYX BETWEEN STAGE 1-2. BOTTOM EXCORIATED AND WET WITH SOME BLEEDING. AREA CLEANED AND DRIED. MICONAZOLE POWDER PLACED. AREA LEFT OPEN TO AIR D/T EXCESSIVE MOISTURE; DRY FLOW PLACED UNDER PT AND TURNED TO KEEP PRESSURE OFF. PT RED WITH SMALL AMT OF BLEEDING TO MOST SKIN FOLDS, ALL FOLDS CLEANED, DRIED, MEDICATED POWDER PLACED. PT'S AND OTHER FAMILY MEMBERS AT BEDSIDE; GIVEN UPDATE.
[2022-12-24 13:06] LABS: Hematocrit 31.5 % (33.0-51.0); Hemoglobin 10.2 g/dL (11.5-16.0); Mean Corpuscular HGB 30.5 pg (26.0-34.0); Mean Corpuscular HGB Conc 32.4 g/dL (31.5-36.5); Mean Corpuscular Volume 94 fL (80-100); Mean Platelet Volume 9.6 fL (9.1-12.4); Platelet Count 104 K/mm3 (150-400); RDW Coefficient Variation 15.9 % (11.7-14.2); Red Blood Cell Count 3.34 M/mm3 (3.80-5.20); White Blood Cell Count 18.03 K/mm3 (4.00-11.30)
[2022-12-24 13:26] LABS: BAND PERCENT MAN 5 % (0-8); BASOPHILS PERCENT MAN 0 % (0-2); EOSINOPHILS PERCENT MAN 0 % (0-6); LYMPHOCYTES PERCENT MAN 5 % (21-46); MONOCYTES ABSOLUTE MAN 0.72 K/mm3 (0.16-1.47); MONOCYTES PERCENT MAN 4 % (4-13); SEG NEUTROPHILS PERCENT MAN 86 % (41-73); TOTAL CELLS COUNTED 100
[2022-12-24 13:33] LABS: Albumin/Globulin Ratio 0.4 (0.8-1.8); Bilirubin, Total 1.5 mg/dL (0.1-1.0); Bun/Creatinine Ratio 18.6 (12.0-20.0); Calcium, Blood 7.3 mg/dL (8.5-10.1); Creatinine, Blood 2.64 mg/dL (0.40-1.00); Magnesium, Blood 1.8 mg/dL (1.6-2.4); Phosphorus, Blood 2.7 mg/dL (2.5-4.9); Potassium, Blood 3.9 mmol/L (3.5-5.5)
--- NOTE | 2022-12-24 13:56 | NUR ---
AFTERNOON ROUNDING AND LAB RESULTS: DR. THOMAS ROUNDED ON PATIENT. DISCUSSED URINE OUTPUT (425 ML SINCE THE LASIX WAS ADMINISTERED) AND ELEVATED CBGS. CALLED DR. THOMAS WITH RESULTS OF CMP AND RECHECK ON CBG. NEW ORDERS RECEIVED FOR IV LASIX OT AND HUMALOG NON-SS COVERAGE OT. ALSO REPORTED CRITICAL LACTIC ACID (TRENDING IN THE RIGHT DIRECTION).
--- NOTE | 2022-12-24 17:29 | NUR ---
SHIFT SUMMARY: NEURO: PATIENT STARTED THE SHIFT LETHARGIC, BUT RESPONDING TO VERBAL CUES AND FOLLOWING DIRECTIONS. DURING THE MORNING, WHEN ON THE NC AND WITH FAMILY AT THE BEDSIDE, PATIENT WAS ALERT, FOLLOWING DIRECTIONS AND PARTICIPATING IN CARE. IN THE AFTERNOON, WHEN BACK ON THE CPAP FOR SLEEP, PATIENT CONTINUED TO AWAKE EASILY TO VOICE AND BE ABLE TO FOLLOW DIRECTIONS. PATIENT'S REPORTS THAT SHE IS TYPCIALLY AWAKE AT NIGHT AND SLEEPS DURING THE DAY. CARDIAC: PATIENT DENIED CHEST PAIN OR DISCOMFORT THROUGHOUT THE SHIFT. LEVOPHED GTT TITRATED DOWN TO 3 MCG/KG/MIN. MAPS MAINTAINED >65. SBPS IN THE 110S-120S. HR IN THE 80S. AT TIMES, PATIENT IS IN SINUS TACHY IN THE 110S. PATIENT RECEIVED TWO DOSES OF IV LASIX (60MG AND 40MG) AND TOLERATED THEM WITHOUT DECREASING BP OR INCREASED LEVOPHED REQUIREMENTS. IMPROVED EDEMA IN BLE. RESPIRATORY: PATIENT STABLE ON CPAP WITH 3L O2 BLEED IN OR 2L VIA NC WHEN AWAKE. NEW FULL FACE MASK USED WITH CPAP TO ALLEVIATE PRESSURE ON PRESSURE INJURY IN BRIDGE OF HER NOSE. LUNG SOUNDS DIMINISHED AND CLEAR DURING SHIFT. SPO2 IN THE 90S. RR AT 16. PATIENT REPORTED SHORTNESS OF BREATH WITH BEDBATH AND ASSOCIATED REPOSITIONING. THIS RESOLVED WITH REST. PATIENT REPORTED OVERALL IMPROVED BREATHING. GI/: PATIENT REMAINED NPO RELATED TO FATIGUE AND DROWSINESS. TOLERATED SIPS OF WATER AND PILLS. DENIED NAUSEA OR ABDOMINAL DISCOMFORT. REPORTS THAT SHE HAS AN APPETITE. NO BOWEL MOVEMENT THIS SHIFT. IMPROVED URINE OUTPUT POST LASIX ADMINISTRATION. URINE IMPROVED IN COLOR, BUT CONTINUES TO BE STEW OR HAVE A PINK TINGE. SEDIMENT NOTED IN TUBING AND COLLECTION BAG. MUSCULOSKELETAL/INTEGUMENTARY: PATIENT PAINFUL WITH REPOSITIONING. PATIENT ABLE TO HELP MINIMALLY WITH RIGHT ARM. MOVEMENT IN BLE LIMITED. REPOSITIONING Q2HR. PATIENT HAS A DEVELOPING PRESSURE INJURY ON THE COCCYX FROM PRIOR TO ADMISSION. BARRIER CREAM APPLIED. PATIENT HAS MEDICATED POWDER FOR FOLDS. PSYCHSOCIAL: PATIENT RECEIVED MULTIPLE VISITORS. HER FAMILY IS SUPPORTIVE AND CARING TOWARDS THE PATIENT. PATIENT EXPERIENCED SOME ANXIETY THIS AM WHEN DISCUSSING DNR STATUS. THIS RESOLVED WITH REASSURANCE AND VISITS FROM FAMILY.
[2022-12-25] VITALS (94 sets, daily range): BP systolic 86–145; BP diastolic 41–74
[2022-12-25 04:25] LABS: BASOPHILS ABSOLUTE AUTO 0.06 K/mm3 (0.00-0.23); BASOPHILS PERCENT AUTO 1 % (0-2); EOSINOPHILS ABSOLUTE AUTO 0.41 K/mm3 (0.00-0.68); EOSINOPHILS PERCENT AUTO 3 % (0-6); Hematocrit 32.1 % (33.0-51.0); Hemoglobin 10.4 g/dL (11.5-16.0); IMMATURE GRAN ABSOLUTE AUTO 0.14 K/mm3 (0.00-0.10); IMMATURE GRAN PERCENT AUTO 1 % (0-1); LYMPHOCYTES ABSOLUTE AUTO 0.83 K/mm3 (0.84-5.20); LYMPHOCYTES PERCENT AUTO 7 % (21-46); MONOCYTES ABSOLUTE AUTO 1.04 K/mm3 (0.16-1.47); MONOCYTES PERCENT AUTO 8 % (4-13); Mean Corpuscular HGB 29.9 pg (26.0-34.0); Mean Corpuscular HGB Conc 32.4 g/dL (31.5-36.5); Mean Corpuscular Volume 92 fL (80-100); Mean Platelet Volume 9.6 fL (9.1-12.4); NEUTROPHILS ABSOLUTE AUTO 10.05 K/mm3 (1.96-9.15); NEUTROPHILS PERCENT AUTO 80 % (41-73); Platelet Count 97 K/mm3 (150-400); RDW Coefficient Variation 15.9 % (11.7-14.2); RDW Standard Deviation 53.5 fL (35.1-46.3); Red Blood Cell Count 3.48 M/mm3 (3.80-5.20); White Blood Cell Count 12.53 K/mm3 (4.00-11.30)
[2022-12-25 05:39] LABS: Bilirubin, Total 1.2 mg/dL (0.1-1.0); Bun/Creatinine Ratio 18.5 (12.0-20.0); Creatinine, Blood 2.65 mg/dL (0.40-1.00); Phosphorus, Blood 2.3 mg/dL (2.5-4.9); Potassium, Blood 3.5 mmol/L (3.5-5.5); Total Protein, Blood 6.5 g/dL (6.4-8.2)
[2022-12-25 05:52] LABS: Magnesium, Blood 1.6 mg/dL (1.6-2.4)
[2022-12-25 05:53] LABS: Calcium, Blood 7.1 mg/dL (8.5-10.1)
--- NOTE | 2022-12-25 06:02 | NUR ---
PROCESS LABORATORY SPECIALIST SUMMARY PT HAS REMAINED ALERT AND ORIENTED THIS SHIFT COMMUNICATING APPROPRIATELY W STAFF. PT BEGAN SHIFT W LEVOPHED GTT AT 3MCG/MIN BUT WAS UNABLE TO MAINTAIN A MAP >65 REQUIRING 4-5MCG/MIN TO MAINTAIN MAP >65. PT'S MONITOR SHOWING SR 70'S BUT OCCASIONALLY AT REST PT'S HR W BE ST 100'S. PT AFEBRILE THIS SHIFT. PT'S SPO2 >90% ON CPAP W 3L BLEED IN. PT'S LS HAVE BIBASILAR CRACKLES THIS SHIFT BUT PT TOLERATING LYING FLAT AND DENYING ANY DYSPNEA THIS SHIFT. PT PAINFUL W Q2H TURNS BUT PAIN WNL WHEN AT REST NOT REQUIRING ANY PAIN MEDICATION THIS SHIFT. PT SLEEPING COMFORTABLY FOR MOST OF THE SHIFT BUT AROUSING EASILY TO SPEECH. PT'S SAWANT PATENT AND DRAINING 1600ML STEW URINE THIS SHIFT. WILL REPORT TO ONCOMING RN.
--- NOTE | 2022-12-25 07:00 | NUR ---
ASSUMPTION OF CARE BEDSIDE REPORT RECEIVED FROM LEDY WEST. PT RECEIVING LEVOPHED 4MCG/MIN AND NS 25ML/HR. SHE IS ON CPAP WITH 2L. SHE IS A&OX3. OCCASIONALLY MOANS OUT AND USES CALL LIGHT APPROPRIATELY. LUNGS ARE CLEAR/DIMINISHED, CRACKLES IN BASES. NSR ON MONITOR WITH RATE IN 70S. SAWANT PATENT AND DRAINING TO GRAVITY. SEE SHIFT ASSESSMENT.
[2022-12-25 07:54] LABS: Base Excess Venous -1.5 mmol/L; Bicarbonate Venous 22.9 mmol/L (24.0-30.0); PCO2 Venous 43.6 mmHg (38-42); pH Blood Venous 7.35 (7.34-7.37)
--- NOTE | 2022-12-25 12:31 | NUR ---
UPDATE FAMILY AT BEDSIDE AND UPDATED ON PT STATUS. SHE REMAINS ON LEVOPHED 3MCG/MIN. BEDSIDE SWALLOW COMPLETED AND PT PASSED. DURING TESTING, SHE WAS PLACED ON 2L NC WITH SPO2 >92%. AFTER APPROX 5-7MIN PT STATED SHE NEEDS THE CPAP MASK BACK ON. EXPLAINED IF LATER THIS AFTERNOON PT IS ABLE TO STAY ALERT AND TOLERATE BEING OFF OF THE MASK THAT HER DIET CAN BE ADVANCED. PT VERBALIZES UNDERSTANDING.
--- NOTE | 2022-12-25 12:42 | NUR ---
LIVING SITUATION PT AND SPOUSE REPORT PT BEING BOUND TO A RECLINER SINCE MARCH OF THIS YEAR. SPOUSE REPORTS PT HAD A "LUNG PROBLEM AND NEVER REALLY RECOVERED". SPOUSE IS PT'S PRIMARY CAREGIVER AND ASSISTS PT WITH REPOSITIONING ABLE BUT PT DOES NOT WALK. HE ALSO REPORTS PT "BROKE HER FOOT" AND WAS RECENTLY CLEARED TO START USING MINI STEPPER OR DESK PEDAL WHILE IN THE RECLINER. RECLINER IS ELECTRIC TO RAISE AND LOWER LEGS. PT STS SHE IS UNABLE TO GET UP AND GO TO THE RESTROOM AND SPOUSE CLEANS HER NEEDED.
[2022-12-25 13:21] LABS: BASOPHILS ABSOLUTE AUTO 0.06 K/mm3 (0.00-0.23); BASOPHILS PERCENT AUTO 1 % (0-2); EOSINOPHILS ABSOLUTE AUTO 0.11 K/mm3 (0.00-0.68); EOSINOPHILS PERCENT AUTO 1 % (0-6); Hematocrit 32.3 % (33.0-51.0); Hemoglobin 10.4 g/dL (11.5-16.0); IMMATURE GRAN ABSOLUTE AUTO 0.18 K/mm3 (0.00-0.10); IMMATURE GRAN PERCENT AUTO 2 % (0-1); LYMPHOCYTES ABSOLUTE AUTO 0.74 K/mm3 (0.84-5.20); LYMPHOCYTES PERCENT AUTO 7 % (21-46); MONOCYTES ABSOLUTE AUTO 0.84 K/mm3 (0.16-1.47); MONOCYTES PERCENT AUTO 8 % (4-13); Mean Corpuscular HGB 29.8 pg (26.0-34.0); Mean Corpuscular HGB Conc 32.2 g/dL (31.5-36.5); Mean Corpuscular Volume 93 fL (80-100); Mean Platelet Volume 9.4 fL (9.1-12.4); NEUTROPHILS ABSOLUTE AUTO 8.71 K/mm3 (1.96-9.15); NEUTROPHILS PERCENT AUTO 82 % (41-73); Platelet Count 93 K/mm3 (150-400); RDW Coefficient Variation 15.8 % (11.7-14.2); RDW Standard Deviation 53.8 fL (35.1-46.3); Red Blood Cell Count 3.49 M/mm3 (3.80-5.20); White Blood Cell Count 10.64 K/mm3 (4.00-11.30)
[2022-12-25 13:40] LABS: Albumin/Globulin Ratio 0.4 (0.8-1.8); Bilirubin, Total 1.4 mg/dL (0.1-1.0); Bun/Creatinine Ratio 22.9 (12.0-20.0); Calcium, Blood 7.4 mg/dL (8.5-10.1); Creatinine, Blood 2.18 mg/dL (0.40-1.00); Globulin, Blood 4.6 g/dL (2.2-4.0); Magnesium, Blood 2.5 mg/dL (1.6-2.4); Phosphorus, Blood 3.1 mg/dL (2.5-4.9); Potassium, Blood 3.6 mmol/L (3.5-5.5); Total Protein, Blood 6.6 g/dL (6.4-8.2)
--- NOTE | 2022-12-25 18:49 | NUR ---
SHIFT SUMMARY PT REMAINS ON HOME CPAP WITH 2L. ATTEMPTED A BREAK FROM MASK TODAY, SEE PREVIOUS NOTE. PT HAS BEEN DROWSY AND REPORTS FEELING TIRED THROUGHOUT THE DAY. SHE IS ALERT AND ORIENTED, USES CALL LIGHT APPROPRIATELY. SHE IS RECEIVING LEVOPHED 2MCG/MIN TO MAINTAIN MAP >60. SINUS RHYTHM ON MONITOR WITH RATE IN 70S. SAWANT PATENT AND DRAINING TO GRAVITY. AT BEDSIDE THIS AFTERNOON AND UPDATED. BED IN LOW POSITION AND CALL LIGHT WITHIN REACH.
--- NOTE | 2022-12-25 19:26 | NUR ---
CARE ASSUMPTION DURING BEDSIDE SHIFT REPORT W FELIX RN THE PT IS LYING IN BED AWAKE WEARING CPAP MASK W 3L BLEED-IN. PT IS ALERT AND COMMUNICATING APPROPRIATELY W THIS RN AT THIS TIME. PT REQUESTING TO BE ADJUSTED IN BED AT THIS TIME AND ASSISTED IN SITTING UP IN BED. PT'S MONITOR SHOWING SR 70'S BP WNL AND STABLE W LEVOPHED GTT RUNNING AT 2MCG/MIN. NS RUNNING AT 25ML/HR.
[2022-12-26] VITALS (88 sets, daily range): BP systolic 78–136; BP diastolic 44–81
[2022-12-26 04:43] LABS: BASOPHILS ABSOLUTE AUTO 0.04 K/mm3 (0.00-0.23); BASOPHILS PERCENT AUTO 0 % (0-2); EOSINOPHILS ABSOLUTE AUTO 0.14 K/mm3 (0.00-0.68); EOSINOPHILS PERCENT AUTO 2 % (0-6); Hematocrit 31.3 % (33.0-51.0); Hemoglobin 10.2 g/dL (11.5-16.0); IMMATURE GRAN ABSOLUTE AUTO 0.34 K/mm3 (0.00-0.10); IMMATURE GRAN PERCENT AUTO 4 % (0-1); LYMPHOCYTES ABSOLUTE AUTO 0.95 K/mm3 (0.84-5.20); LYMPHOCYTES PERCENT AUTO 10 % (21-46); MONOCYTES ABSOLUTE AUTO 0.91 K/mm3 (0.16-1.47); MONOCYTES PERCENT AUTO 10 % (4-13); Mean Corpuscular HGB 29.7 pg (26.0-34.0); Mean Corpuscular HGB Conc 32.6 g/dL (31.5-36.5); Mean Corpuscular Volume 91 fL (80-100); Mean Platelet Volume 9.7 fL (9.1-12.4); NEUTROPHILS ABSOLUTE AUTO 7.17 K/mm3 (1.96-9.15); NEUTROPHILS PERCENT AUTO 75 % (41-73); Platelet Count 91 K/mm3 (150-400); RDW Coefficient Variation 15.7 % (11.7-14.2); RDW Standard Deviation 52.1 fL (35.1-46.3); Red Blood Cell Count 3.44 M/mm3 (3.80-5.20); White Blood Cell Count 9.55 K/mm3 (4.00-11.30)
[2022-12-26 05:01] LABS: Albumin, Blood 1.8 g/dL (3.4-5.0); Albumin/Globulin Ratio 0.4 (0.8-1.8); Bilirubin, Total 1.3 mg/dL (0.1-1.0); Bun/Creatinine Ratio 25.5 (12.0-20.0); Calcium, Blood 7.3 mg/dL (8.5-10.1); Creatinine, Blood 1.88 mg/dL (0.40-1.00); Globulin, Blood 4.5 g/dL (2.2-4.0); Magnesium, Blood 1.8 mg/dL (1.6-2.4); Phosphorus, Blood 3.1 mg/dL (2.5-4.9); Potassium, Blood 3.5 mmol/L (3.5-5.5); Total Protein, Blood 6.3 g/dL (6.4-8.2)
--- NOTE | 2022-12-26 06:21 | NUR ---
PROTECTION SPECIALIST SUMMARY PT HAS REMAINED ALERT AND COMMUNICATING APPROPRIATELY W STAFF THIS SHIFT USING HER CALL LIGHT TO MAKE HER NEEDS KNOWN. PT REMAINED ON LEVOPHED 2MC.MIN ALL SHIFT AND WHEN THE LEVOPHED WAS PAUSED FOR LAB DRAWS HER BP DECLINED RAPIDLY. PT'S MONITOR SHOWING SR 70'S ALL SHIFT. PT AFEBRILE THIS SHIFT. PT WEARING CPAP MASK ALL NIGHT W 2L BLEED IN ALTHOUGH SHE DID REQUIRE 4L BLEED IN FOR A TIME FOLLOWING IV FENTANYL ADMINISTRATION CAUSING SPO2 TO DROP TO 88%. PT'S SAWANT PATENT AND DRAINED 700ML STEW URINE THIS SHIFT. PT HAD ONE SMALL BM THIS SHIFT. PT SLEEPING COMFORTABLY FOR MOST OF THE NIGHT. WILL REPORT TO ONCOMING RN.
--- NOTE | 2022-12-26 07:00 | NUR ---
ASSUMPTION OF CARE PT RECEIVING LEVOPHED 2MCG/MIN AND NS 25ML/HR. SHE IS ALERT AND ORIENTED WITH PLEASANT AFFECT. SHE REPORTS NOT SLEEPING WELL LAST NIGHT AND FEELING TIRED TODAY. SHE ASSISTS WITH CARE TO HER ABILITY AND IS AGREEABLE TO TRIAL SITTING IN A RECLINER TODAY. SAWANT PATENT AND DRAINING DARK YELLOW URINE TO GRAVITY. BED IN LOW POSITION AND CALL LIGHT WITHIN REACH.
--- NOTE | 2022-12-26 12:58 | NUR ---
UPDATE PT SITTING UP IN RECLINER. TRANSITIONED FROM CPAP TO 4L NC. PT ENCOURAGED TO EAT LUNCH AND ASSISTED. SHE REPORTS DECREASED APPETITE. PT REQUESTS TO COME VISIT. PHONE CALL PLACED TO DON WHO STS HE WILL BE IN TO VISIT. PT RESTING IN RECLINER, CALL LIGHT WITHIN REACH.
--- NOTE | 2022-12-26 15:23 | NUR ---
UPDATE DISCUSSION WITH PT, FAMILY AND PALLIATIVE CARE. PLAN TO START PT/OT TOLERATED. PT IS ESTABLISHED WITH [facility]. [facility] PROVIDER AND HOSPITALIST NOTIFIED.
--- NOTE | 2022-12-26 18:30 | NUR ---
SHIFT SUMMARY LEVOPHED INFUSING AT 2MCG/MIN. PT HAS BEEN ON CPAP WITH 2L. SHE HAD A BREAK FROM CPAP THIS AFTERNOON FOR APPROX 1.5HRS. SHE IS CURRENTLY ON 4LNC AND TOLERATING WELL. SHE IS ALERT AND ORIENTED. SHE SAT IN THE RECLINER FOR ABOUT HALF OF THE DAY. ENCOURAGED PO INTAKE. PT DENIED SOLIDS BUT TOELRATED FLUIDS WELL. SAWANT PATENT AND DRAINING TO GRAVITY. FAMILY AT BEDSIDE THIS AFTERNOON. DAUGHTER STS SHE WILL COME IN THE MORNING IN [place] TO BE PRESENT DURING PHYSICIAN ROUNDING. BED IN LOW POSITION, CALL LIGHT WITHIN REACH.
--- NOTE | 2022-12-26 18:52 | NUR ---
Met with family today to review care. Pt becoming more frail. they had concerns about infrection. Review of symptoms pt is having more headaches. Wedicussed some of her needs and barriers. Asked pt if she could hear what we were saying and discussing. She staed a little but was unable to engage. Pt complaining of discomfort form positioning of her head and neck with mask. Got her jayson pillow with sme relief. Discuseed chronic outpatient care. pt needs wound care and mobilization. Will review with physician prognosis. Looks like she was on hospice. kps score is 40%. Advised will follow for symptom management and advance care planning. Therputic conversation with family that if any further changes will discuss plan to give her dignity and comfort and reduce suffering.
--- NOTE | 2022-12-26 21:25 | NUR ---
ASSUMED CARE ASSUMED CARE AT 1900. PT A.O X 4. CALM AND COOPERATIVE WITH CARE. VSS. LEVOPHED GTT INFUSING AT 2MCG/HR. MAPS 70-80'S. TITRATED DOWN TO 1MCG/HR. NS AT 25ML/HR. MAPS LOW 60'S. SR RATE 70'S. ON HOME CPAP WITH 2L. PT C/O "UPSET STOMACH" THAT PT STATES IS FROM THE [facility]. Q2 TURNS. SAWANT PATENT AND DRAINING TO GRAVITY. CALL LIGHT IN REACH.
[2022-12-27] VITALS (82 sets, daily range): BP systolic 88–142; BP diastolic 44–107
[2022-12-27 03:42] LABS: BASOPHILS ABSOLUTE AUTO 0.04 K/mm3 (0.00-0.23); BASOPHILS PERCENT AUTO 1 % (0-2); EOSINOPHILS ABSOLUTE AUTO 0.15 K/mm3 (0.00-0.68); EOSINOPHILS PERCENT AUTO 2 % (0-6); Hematocrit 31.8 % (33.0-51.0); Hemoglobin 10.4 g/dL (11.5-16.0); IMMATURE GRAN ABSOLUTE AUTO 0.45 K/mm3 (0.00-0.10); IMMATURE GRAN PERCENT AUTO 5 % (0-1); LYMPHOCYTES ABSOLUTE AUTO 1.07 K/mm3 (0.84-5.20); LYMPHOCYTES PERCENT AUTO 12 % (21-46); MONOCYTES ABSOLUTE AUTO 0.79 K/mm3 (0.16-1.47); MONOCYTES PERCENT AUTO 9 % (4-13); Mean Corpuscular HGB 29.5 pg (26.0-34.0); Mean Corpuscular HGB Conc 32.7 g/dL (31.5-36.5); Mean Corpuscular Volume 90 fL (80-100); Mean Platelet Volume 8.9 fL (9.1-12.4); NEUTROPHILS PERCENT AUTO 71 % (41-73); NRBC ABSOLUTE 0.02 K/mm3 (0.00-0.02); NRBC Auto 0.2 /100 WBC (0.0-0.2); Platelet Count 94 K/mm3 (150-400); RDW Coefficient Variation 15.8 % (11.7-14.2); RDW Standard Deviation 52.7 fL (35.1-46.3); Red Blood Cell Count 3.52 M/mm3 (3.80-5.20)
[2022-12-27 04:00] LABS: Albumin, Blood 1.6 g/dL (3.4-5.0); Albumin/Globulin Ratio 0.3 (0.8-1.8); Bilirubin, Total 1.3 mg/dL (0.1-1.0); Bun/Creatinine Ratio 32.7 (12.0-20.0); Calcium, Blood 7.5 mg/dL (8.5-10.1); Creatinine, Blood 1.53 mg/dL (0.40-1.00); Phosphorus, Blood 2.7 mg/dL (2.5-4.9); Potassium, Blood 3.2 mmol/L (3.5-5.5); Total Protein, Blood 6.6 g/dL (6.4-8.2)
--- NOTE | 2022-12-27 06:06 | NUR ---
SHIFT SUMMARY NO ACUTE EVENTS T/O NIGHT. PT C/O PAIN IN RIGHT HIP WITH TURNS. MOSTLY RELIEVED BY REPOSITIONING AND REST. MEDICATED X1 WITH PRN PAIN MEDS. PT ALSO C/O OF CONSTIPATION AND UPSET STOMACH THIS AM. PT STATES SHE IS NAUSEOUS BUT DOES NOT FEEL LIKE SHE IS GOING TO VOMIT. ZOFRAN GIVEN. VSS. LEVOPHED REMAINS INFUSING AT 2MCG/HR. NS AT 25ML/HR. PT WORE CPAP T/O NIGHT WITH 2L O2. SAWANT PATENT AND DRAINING TO GRAVITY. CALL TO HOSP REGARDING AM LABS. ORDER RECEIVED. WILL REPORT OFF TO ONCOMING RN.
--- NOTE | 2022-12-27 07:00 | NUR ---
ASSUMPTION OF CARE PT RECEIVING LEVOPHED 2MCG/MIN AND NS 25ML/HR. SHE HAD HER CPAP ON WITH 2L. CHANGED TO 2L NC FOR A BREAK AND TO ENCOURAGE PO INTAKE. SHE REFUSED BREAKFAST TRAY AND GLUCERNA BUT IS DRINKING WATER. TOLERATED 2L NC FOR APPROX 30MIN. SHE IS ALERT AND ORIENTED, USES BED CONTROL AND CALL LIGHT APPROPRIATELY. LUNGS ARE CLEAR, DIMINISHED IN BASES. BOWEL TONES ACTIVE, ABDOMEN SOFT, NONTENDER. SAWANT IN PLACE DRAINING DARK YELLOW URINE WITH SEDIMENT. DAUGHTER AT BEDSIDE, UPDATED ON PT CONDITION. BED CONTROL AND CALL LIGHT WITHIN REACH, BED IN LOW POSITION.
--- NOTE | 2022-12-27 11:11 | NUR ---
DISCUSSION WITH DAUGHTER DISCUSSED HOME SITUATION WITH DAUGHTER. DAUGHTER PROVIDES MORE IN-DEPTH HEALTH HISTORY. SHE REPORTS APPROXIMATELY TWO YEARS AGO PT WAS DIAGNOSED WITH CO2 POISONING RELATED TO A HOME RESPIRATORY MACHINE AND TOLD THAT HALF OF HER LUNGS WERE DAMAGED. AT THAT TIME, PT WAS PLACED ON HOSPICE. PT BEGAN TO IMPROVE AND HOSPICE SERVICES REVOKED. DAUGHTER STS SHE FEELS THE PT AND FAMILY HAVE A STRONG SUPPORT SYSTEM IN PLACE AND ARE CAPABLE OF PROVIDING ADEQUATE CARE. HOWEVER SPOUSE DOES HAVE A DIFFICULT TIME TRANSPORTING PT TO APPOINTMENTS. PLAN TO BEGIN PT/OT TOMORROW TO INCREASE MOBILITY. OPEN WINDER NOW AT BEDSIDE.
--- NOTE | 2022-12-27 18:04 | NUR ---
SHIFT SUMMARY/POLST PT HAS BEEN OFF OF LEVOPHED SINCE 944. SHE TRANSITIONS BETWEEN A&OX1-3. SHE REPORTS FEELING TIRED AND WHEN SHE DOES SLEEP SHE HAS NIGHTMARES. SHE IS ON HER HOME CPAP WITH 2L. SHE HAD TWO BREAKS TODAY WITH THE IA. TOLERATED WELL BUT PT DROWSY AND REQUESTS MASK. SHE ASSISTS WITH CARE ABLE, USES THE BED CONTROL AND CALL LIGHT. SHE DOES SEEM MORE WITHDRAWN TODAY THAN YESTERDAY. ENCOURAGED PO INTAKE TODAY. PT REFUSED ALL MEALS AND GLUCERNA. SHE DID DRINK APPROX 250ML WATER AND 250ML PROTEIN WATER THAT HER DAUGHTER BROUGHT IN. BOWEL TONES HYPOACTIVE, ABDOMEN SOFT AND NONTENDER. SHE HAD ONE SMALL BM THIS SHIFT. DAUGHTER AT BEDSIDE AGAIN THIS EVENING. SHE REPORTS PT HAS A DNR/COMFORT CARE POLST AT HOME. FORM NOT IN [facility] AND [facility] REGISTRY DOES NOT HAVE ON FILE. DAUGHTER REPORTS SHE WILL BRING IT IN TOMORROW. DAUGHTER ASKED PT FEELINGS TOWARD DOBHOFF FOR NUTRITION AND BEGINNING PT/OT. PT'S MENTAL STATUS ALTERED AND UNABLE TO VERBALIZE GOALS OF CARE. PALLIATIVE CARE NOTIFIED. BED CONTROL AND CALL LIGHT WITHIN REACH. DAUGHTER GISELLE LEAVES PHONE NUMBER BACK UP IN CASE SPOUSE DOES NOT ANSWER PHONE. GISELLE [phone].
--- NOTE | 2022-12-27 21:25 | NUR ---
ASSUMED CARE ASSUMED CARE AT 1900. PT A/O 2-3. FORGETFUL AND WITHDRAWN. PT ONLY ANSWERING IN 1-2 WORDS, AND NOT ASKING QUESTIONS, UNLIKE PREVIOUS NIGHT. VSS. SR RATE 70'S. BP SOFT AT TIMES. CPAP IN PLACE WITH 2L O2. NS AT 25ML/HR. WOUND ON COCCYX APPEARS TO BE HEALING. CREAM APPLIED. UNDER SKIN FOLDS CLEANSED AND MEDICATED POWDER APPLIED. SAWANT PATENT AND DRAINING TO GRAVITY. PT HAD SMALL BM THIS PM. CALL LIGHT IN REACH.
[2022-12-28] VITALS (33 sets, daily range): BP systolic 93–143; BP diastolic 43–84
--- NOTE | 2022-12-28 02:54 | NUR ---
UPDATE PT TOOK OFF CPAP AND THIS RN IN ROOM. WHEN ASKED IF SHE OKAY PT STATED "I WANT TO GO HOME, I'M DONE". WHEN PT ASKED IF SHE WAS TALKING ABOUT HER HOUSE SHE STATED "NO, I WANT TO GO HOME". WHEN ASKED ABOUT CARRIEN PT STATED "YES". PT ABLE TO TELL THIS RN SHE WAS AT [facility] AND THE MONTH WAS NOVEMBER. WAS UNABLE TO STATE THE YEAR. PT ASKED IF SHE WANTED HER FAMILY TO BE CALLED AND TO COME IN. PT NODDED HER HEAD YES. DON CALLED AND THIS INFORMATION RELAYED TO HIM. DON STATED HE WILL CALL GISELLE AND THEY WILL COME IN. PT REQUESTING CPAP BACK ON AND CURRENTLY RESTING QUIETLY.
--- NOTE | 2022-12-28 04:09 | NUR ---
UPDATE "DON" AND DAUGHTER "GISELLE" AT BEDSIDE. PT STATING "I WANT TO GO HOME", WHEN DON ASKED "HOME IN YOUR OWN BED", PT SHOOK HER HEAD AND STATED "I WANT TO GO HOME FOR GOOD". PT DROWSY AND FALLS ASLEEP EASILY. DISCUSSED PLAN WITH FAMILY. PLAN TO SEE IF PT WILL EAT SCRAMBLED EGGS IN AM PT LOVES THOSE. PER DON "IF SHE DOESN'T EAT EGGS, THEN I KNOW". GISELLE ASKING ABOUT IF ECHO RESULTS ARE BACK, INFORMED HER THEY ARE AND SHE REQUESTS THAT THE DAYSHIFT PROVIDER TALKS TO HER ABOUT THEM. PLAN TO ASK PALLIATIVE CARE TO COME TO BEDSIDE IN THE AM VS THE PLANNED TIME AT 1500.
--- NOTE | 2022-12-28 05:37 | NUR ---
SHIFT SUMMARY NO ACUTE EVENTS T/O NIGHT. FAMILY AT BEDSIDE THIS AM. SEE PREVIOUS NOTES. VSS. LEVO ON SB ALL NIGHT. ON CPAP 2L O2 WITH SPO2 GREATER THEN 92%. SAWANT PATENT AND DRAINING TO GRAVITY. CALL LIGHT IN REACH. WILL REPORT OFF TO ONCOMING RN.
--- NOTE | 2022-12-28 06:23 | NUR ---
UPDATE PT ALERT THIS AM. ABLE TO STATE CORRECT , NAME, STATE, AND LOCATION. DAUGHTER IN ROOM AND ASKED PT IF SHE WOULD LIKE A FEEDING TUBE PLACED IF SHE CAN'T EAT. PT SHOOK HEAD NO. DAUGHTER TO CALL [employer] TO GET COPY OF [employer].
[2022-12-28 07:50] LABS: BASOPHILS ABSOLUTE AUTO 0.04 K/mm3 (0.00-0.23); BASOPHILS PERCENT AUTO 0 % (0-2); EOSINOPHILS ABSOLUTE AUTO 0.11 K/mm3 (0.00-0.68); EOSINOPHILS PERCENT AUTO 1 % (0-6); Hematocrit 31.9 % (33.0-51.0); Hemoglobin 10.5 g/dL (11.5-16.0); Mean Corpuscular HGB 29.9 pg (26.0-34.0); Mean Corpuscular HGB Conc 32.9 g/dL (31.5-36.5); Mean Corpuscular Volume 91 fL (80-100); Mean Platelet Volume 8.9 fL (9.1-12.4); Platelet Count 100 K/mm3 (150-400); RDW Coefficient Variation 15.8 % (11.7-14.2); RDW Standard Deviation 52.4 fL (35.1-46.3); Red Blood Cell Count 3.51 M/mm3 (3.80-5.20); White Blood Cell Count 8.98 K/mm3 (4.00-11.30)
[2022-12-28 07:56] LABS: IMMATURE GRAN ABSOLUTE AUTO 0.47 K/mm3 (0.00-0.10); IMMATURE GRAN PERCENT AUTO 5 % (0-1); LYMPHOCYTES ABSOLUTE AUTO 1.15 K/mm3 (0.84-5.20); LYMPHOCYTES PERCENT AUTO 13 % (21-46); MONOCYTES ABSOLUTE AUTO 0.87 K/mm3 (0.16-1.47); MONOCYTES PERCENT AUTO 10 % (4-13); NEUTROPHILS ABSOLUTE AUTO 6.34 K/mm3 (1.96-9.15); NEUTROPHILS PERCENT AUTO 71 % (41-73)
--- NOTE | 2022-12-28 08:00 | NUR ---
ASSUMED CARE / DR PAZ: REPORT RECEIVED FROM BRETT KAY. ASSUMED CARE OF THIS PT AT APPROX 0700. ON ASSESSMENT, THE PT IS AWAKE & SITTING UP IN BED W/ FAMILY AT BEDSIDE. SHE IS NOT CONVERSANT & ONLY ANSWERS APPROX HALF OF QUESTIONS ASKED OF HER. GENERALIZED WEAKNESS, BEDBOUND AT BASELINE. STS SHE "CAN'T" MOVE HER LOWER EXTREMITIES. LS CLEAR, DIM IN BASES. PT CURRENTLY ON 4L NC W/ O2 SATS > 95%. MONITOR SHOWS SR W/ HR 70s, BP STABLE, LEVOPHED OFF FOR APPROX 24 HRS NOW. PT STS HAVING NO APPETITE, HAS HAD VERY POOR PO INTAKE AMNTS SINCE ADMIT. REFUSES FEEDING TUBE PLACEMENT FOR NUTRITIONAL NEEDS. SAWANT PATENT/ DRAINING YELLOW URINE - IN PLACE FOR STRICT I&O MEASUREMENTS. SKIN CONDITION OVERALL FRAGILE, LARGE AREA OF DEEP PURPLE DISCOLORATION NOTED TO COCCYX & BUTTOCKS, NON-BLANCHING. SMALL SUPERFICIAL AREA OF OPEN SKIN - PHOTOS IN CHART. Q2H REPOSITIONING TO MAINTAIN SKIN INTEGRITY. DR PAZ AT BEDSIDE THIS AM & HAS HAD DISCUSSION W/ PT's & DAUGHTER REGARDING GOALS OF CARE FOR THIS PT. SHE HAS REFUSES DOBHOFF PLACEMENT & CONTINUES TO REFUSE MEALS WELL. THE FAMILY SEEMS FIXATED ON THE PT's LUNGS & WHETHER OR NOT THEY ARE "50% OR BETTER" FUNCTIONALLY. DR PAZ & THIS RN HAVE ATTEMPTED TO ENCOURAGE WHOLE BODY THINKING FOR THIS PT, REMINDING THE FAMILY THAT THERE ARE PERTINENT COMORBIDITIES COMPLICATING THE PT's CONDITION IN ADDITION TO HER CURRENT FAILURE TO THRIVE. THIS RN HAS CONTACTED PALLIATIVE CARE & INFORMED THEM OF PT's CURRENT CONDITION & FAMILY DYNAMICS. THE FAMILY HAS EXPERIENCE W/ THIS PT ON HOSPICE & DR PAZ HAS PLACED A HOSPICE REFERRAL THIS AM. THE PT IS NOW PCU STATUS. WILL CONTINUE TO MONITOR & UPDATE NEEDED.
[2022-12-28 08:14] LABS: BAND PERCENT MAN 1 % (0-8); BASOPHILS PERCENT MAN 0 % (0-2); EOSINOPHILS ABSOLUTE MAN 0.26 K/mm3 (0.00-0.68); EOSINOPHILS PERCENT MAN 3 % (0-6); LYMPHOCYTES ABSOLUTE MAN 0.62 K/mm3 (0.84-5.20); LYMPHOCYTES PERCENT MAN 7 % (21-46); METAMYELOCYTE ABSOLUTE MAN 0.26 K/mm3 (0.00-0.00); METAMYELOCYTE PERCENT MAN 3 % (0-0); MONOCYTES PERCENT MAN 0 % (4-13); NEUTROPHILS ABSOLUTE MAN 7.81 K/mm3 (1.96-9.15); SEG NEUTROPHILS PERCENT MAN 86 % (41-73); TOTAL CELLS COUNTED 100
[2022-12-28 08:20] LABS: Albumin, Blood 1.6 g/dL (3.4-5.0); Albumin/Globulin Ratio 0.3 (0.8-1.8); Bilirubin, Total 1.2 mg/dL (0.1-1.0); Bun/Creatinine Ratio 36.2 (12.0-20.0); Calcium, Blood 7.8 mg/dL (8.5-10.1); Creatinine, Blood 1.41 mg/dL (0.40-1.00); Globulin, Blood 5.1 g/dL (2.2-4.0); Potassium, Blood 3.3 mmol/L (3.5-5.5); Total Protein, Blood 6.7 g/dL (6.4-8.2)
--- NOTE | 2022-12-28 15:50 | NUR ---
ASSUMED CARE OF PATIENT AT 1549 UPON HER TRANSFER FROM ICU 7. SHE IS IN A BARIATRIC BED. ALERT, ANSWERS QUESTIONS APPROPRIATELY. ON O2 @ 4 L/MIN NC, CPAP AT BEDSIDE ALSO. SAWANT CATHETER DRAINING STEW URINE. REPOSITIONED TO HER R SIDE WITH PILLOWS. FAMILY AT BEDSIDE.
--- NOTE | 2022-12-28 15:55 | NUR ---
TRANSFER TO MEDICAL FLOOR: REPORT GIVEN TO GIO Faustin RN TO ASSUME CARE ON MED FLOOR. THE FAMILY IS PRESENT AT BEDSIDE DURING THIS TIME & AWARE OF NEW ROOM ASSIGNMENT 309. MICHAEL Fregoso, PALLIATIVE RN, HAS BEEN AT BEDSIDE TO DISCUSS COMFORT MEASURES & PLANNED HOSPICE DISCHARGE ON WEDNESDAY TO . PT TRANSFERRED OUT OF UNIT AT APPROX 1540. MEDS, CHART & ALL BELONGINGS TAKEN UP W/ PT AT THAT TIME.
--- NOTE | 2022-12-29 04:40 | NUR ---
SHIFT SUMMARY: PT IS ADMITTED FOR SEPTIC SHOCK AND IS A DNR. ALERT AND ABLE TO MAKE SOME NEEDS KNOWN. ADL S ARE 2P MAX. IS ON COMFORT CARE. SHE DID NOT GET OUT OF BED THIS SHIFT. DENIES PAIN OR DISCOMFORT WHEN ASKED. PICC TO UPPER LEFT PATENT WITH A DRESSING THAT IS CDI.
--- NOTE | 2022-12-29 18:45 | NUR ---
SHIFT SUMMARY PATIENT COMFORT CARE STATUS. PLAN FOR DISCHARGE TOMORROW TO HER HOME ON [facility]. NO ACUTE CHANGES THIS SHIFT. PATIENT SLEPT T/O THE SHIFT, MEDICATED FOR PAIN TWICE, AND BARELY TOUCHED HER FOOD. ENCOURAGED HER TO DRINK HER ENSURE BY OFFERING SIPS AT EACH ROUND TO WHICH SHE ACCEPTED, BUT WAS FALLING ASLEEP AND FORGETTING THAT A STRAW WAS IN HER MOUTH. CURRENTLY SLEEPING WITH HER CPAP ON WITH 2L O2 BLEED IN. 4L O2 VIA NC WHEN AWAKE. CALL LIGHT WITHIN REACH.
[2022-12-29] MEDS ORDERED: FLUOXETINE HCL20 M1 PO (22:15)
[2022-12-29] MEDS ORDERED: PRAVASTATIN SOD40 MG PO (22:16)
[2022-12-29] MEDS ORDERED: K-TAB ER20 ME1 PO (22:17)
[2022-12-30 00:15] VITALS: BP 129/55
--- NOTE | 2022-12-30 04:42 | NUR ---
SUMMARY: SUMMARY: PT REMAINS ON COMFORT CARE. SHE IS DROWSY AND SLEPT MAJORITY OF NOCTE BUT WAS WAKEFUL TO VOICE AND ABLE TO SPECIFY NEEDS. MEDS TOLERATED W/SIPS OF WATER. SHE DENIED PAIN/DISCOMFORT AND DIDN'T REQUIRE ANY PRN MEDS TONIGHT. SAWANT IS PATENT AND DRAINING DARK URINE. SHE HAS MULTIPLE SORES W/EXCORIATION TO COCCYX, TURN SCHEDULE MAINTAINED AND POWDER APPLIED. SHE TOLERATED CPAP W/2L O2 BLEED IN VIA FULL FACE MASK. NO ACUTE CHANGES. PROBABLE D/C HOME W/HOSPICE TODAY. WCTM AND REPORT TO DAY RN.
[2022-12-30 09:34] LABS: Albumin, Blood 1.8 g/dL (3.4-5.0); Albumin/Globulin Ratio 0.4 (0.8-1.8); Globulin, Blood 4.7 g/dL (2.2-4.0)
[2022-12-30 10:22] VITALS: BP 134/71
--- NOTE | 2022-12-30 11:25 | NUR ---
PT DISCHARGED FROM THE UNIT. PICC REMOVED. TRANSPORT WILL TAKE PT HOME ON [facility]OS[facility]. LEFT UNIT VIA GURNEY. JESE LEFT IN PLACE
== END 2022-12-30 11:03 | disposition hospice, home (50) | DRG 871 ==
LOC: ER 23:23 → ICUE 12-23 01:30 → MEDS 12-28 15:27 → ENPENDDIS 12-30 10:43 → MEDS 12-30 11:03
PROVIDERS: Emergency Medicine; Family Medicine; Hospitalist; Internal Medicine; Nurse Practitioner Acute Care; ADMIT Internal Medicine
PROC: 4A033R1 Measurement of Arterial Saturation, Peripheral, Percutaneous Approach (ICD-10-PCS; 2022-12-23)
PROC: 3E033XZ Introduction of Vasopressor into Peripheral Vein, Percutaneous Approach (ICD-10-PCS; 2022-12-23)
PROC: 3E03329 Introduction of Other Anti-infective into Peripheral Vein, Percutaneous Approach (ICD-10-PCS; 2022-12-23)
PROC: 02HV33Z Insertion of Infusion Device into Superior Vena Cava, Percutaneous Approach (ICD-10-PCS; principal; 2022-12-24)
PROC: 0T9B70Z Drainage of Bladder with Drainage Device, Via Natural or Artificial Opening (ICD-10-PCS; 2022-12-24)
DX: A40.1 Sepsis due to streptococcus, group B (principal); G93.5 Compression of brain; R65.21 Severe sepsis with septic shock; N17.0 Acute kidney failure with tubular necrosis; Z68.43 Body mass index [BMI] 50.0-59.9, adult; N39.0 Urinary tract infection, site not specified; E87.20 Acidosis, unspecified; E87.1 Hypo-osmolality and hyponatremia; Z51.5 Encounter for palliative care; E86.0 Dehydration; Z66 Do not resuscitate; I10 Essential (primary) hypertension; E78.2 Mixed hyperlipidemia; K74.60 Unspecified cirrhosis of liver; F32.A Depression, unspecified; D69.6 Thrombocytopenia, unspecified; F41.9 Anxiety disorder, unspecified; G47.33 Obstructive sleep apnea (adult) (pediatric); L89.152 Pressure ulcer of sacral region, stage 2; E11.65 Type 2 diabetes mellitus with hyperglycemia; I25.10 Atherosclerotic heart disease of native coronary artery without angina pectoris; E66.9 Obesity, unspecified; J45.909 Unspecified asthma, uncomplicated; Z85.42 Personal history of malignant neoplasm of other parts of uterus; Z90.710 Acquired absence of both cervix and uterus; Z90.49 Acquired absence of other specified parts of digestive tract; Z90.89 Acquired absence of other organs; Z87.891 Personal history of nicotine dependence; Z88.2 Allergy status to sulfonamides; Z79.811 Long term (current) use of aromatase inhibitors; Z79.891 Long term (current) use of opiate analgesic; Z79.899 Other long term (current) drug therapy; Z74.01 Bed confinement status; Z87.81 Personal history of (healed) traumatic fracture
CPT/HCPCS: 36415; 36569; 36600; 51702; 71045; 80048; 80053; 81001; 82010; 82140; 82803; 82947; 83605; 83735; 84100; 84145; 84443; 84484; 85025; 87040; 87086; 87147; 93005; 93010; 93306; 93970; 94640; 94660; 94664; 94760; 94762; 96361-59; 96374-59; 96375-59; 97162; 99285-25; A9270; C1751; G0480; J0692; J1170; J1644; J1815; J1940; J2020; J2405; J3010; J3475; J3480; J7030; J7040; J7050; J7060; J7626; P9047